=== PATIENT | male | born 1995 | race African-American/Black ===

== ENCOUNTER 2017-09-01 21:26 | Emergency (ER) | payer SELFPAY ==
[2017-09-01 21:28] VITALS: BP 140/83; PULSE 77; RESP 16; TEMP 97.7; O2SAT 99
[2017-09-01] MEDS ORDERED: SODIUM CHLORIDE 0.9% FLUSH 10 ML FLUSH IVF PRN ×2 (21:45→22:45)
[2017-09-01 22:21] LABS: BLOOD, URINE TRACE (NEG); COMMENT (UR) CULTURE INDICATED; CULTURE IF INDICATED CULTURE INDICATED; GLUCOSE,URINE NEG (NEG); KETONE, URINE NEG (NEG); MUCUS URINE MANY /lpf (OCC); NITRITE,URINE NEG (NEG); SQUAMOUS EPITHELIAL CELL URINE <1 /hpf (0-5); URINE COLOR YELLOW (YELLW/STRAW)
[2017-09-01] MEDS ORDERED: LIDOCAINE HCL 1% PF 30 ML VIAL XX ONE (22:45)
[2017-09-01] MEDS ORDERED: AZITHROMYCIN PWD FOR SUSP 1 GM PACKET PO ONE (22:45)
--- NOTE | 2017-09-01 22:47 | PD ---
HPI Chief Complaint: Complaint Time Seen by Provider: 22:18 Travel History International Travel<30 days: No Contact w/Intl Traveler<30days: No Traveled to known affect area: No History of Present Illness HPI Patient comes in to the emergency department complaining of dysuria and penile discharge 2 days. Patient denies anything making this worse. States drinking water improved symptoms. Denies anything like this in the past. Denies any testicular pain, abdominal pain, back pain, or fevers. Denies any radiation of the pain. PFSH Past Medical History Medical History: Denies Significant Hx Diminished Hearing: No Immunizations Current: Yes Tetanus Vaccination: Unknown Influenza Vaccination: No Social History Alcohol Use: No Tobacco Use: No Substance Use: Yes (marijuana) Allergies-Medications (Allergen,Severity, Reaction): Coded Allergies: No Known Allergies (Verified Adverse Reaction, Unknown, 09/01/17) Reported Meds & Prescriptions Reported Meds & Active Scripts Active No Active Prescriptions or Reported Medications Review of Systems Except as stated in HPI: all other systems reviewed are Neg Physical Exam Narrative GENERAL: Well-developed, well nourished, in no acute distress, and non-ill appearing. SKIN: Focused skin assessment warm and dry. HEAD: Atraumatic. Normocephalic. EYES: Pupils equal and round. EOMI. No scleral icterus. No injection or drainage. ENT: No nasal bleeding or discharge. Mucous membranes pink and moist. NECK: Trachea midline. Supple. No nuclear rigidity. RESPIRATORY: No accessory muscle use. No respiratory distress. GASTROINTESTINAL: Abdomen soft, non-tender, nondistended, and no guarding. Hepatic and splenic margins not palpable. Normal bowel sounds 4. No pulsatile mass. No CVA tenderness. MUSCULOSKELETAL: No obvious deformities. No clubbing. No cyanosis. No edema. Full range of motion. NEUROLOGICAL: Awake and alert. No obvious cranial nerve deficits. Motor grossly within normal limits. Normal speech. PSYCHIATRIC: Appropriate mood and affect; insight and judgment normal. Data Data Last Documented VS Vital Signs Date Time Temp Pulse Resp B/P (MAP) Pulse Ox O2 Delivery O2 Flow Rate FiO2 09/01/17 23:53 09/01/17 21:28 97.7 77 16 99 Room Air Orders Orders Urinalysis - C+S If Indicated (09/01/17 21:45) Gc And Chlamydia Pcr (09/01/17 21:45) Sodium Chloride 0.9% Flush (Ns Flush) (09/01/17 21:45) Urine Culture (09/01/17 21:50) Azithromycin Powd Pack (Zithromax Powd P (09/01/17 22:45) Sodium Chloride 0.9% Flush (Ns Flush) (09/01/17 22:45) Ceftriaxone Inj (Rocephin Inj) (09/01/17 22:45) Lidocaine Pf 1% Inj (Xylocaine-Mpf 1% In (09/01/17 22:45) Ed Discharge Order (09/01/17 23:14) Labs Laboratory Tests Test 09/01/17 21:50 Urine Color YELLOW Urine Turbidity HAZY Urine pH 6.0 Urine Specific [place] 1.034 Urine Protein 30 mg/dL Urine Glucose (UA) NEG mg/dL Urine Ketones NEG mg/dL Urine Occult Blood TRACE Urine Nitrite NEG Urine Bilirubin NEG Urine Urobilinogen 2.0 MG/DL Urine Leukocyte Esterase LARGE Urine RBC 12 /hpf Urine WBC 73 /hpf Urine Squamous Epithelial Cells <1 /hpf Urine Amorphous Sediment RARE Urine Mucus MANY /lpf Microscopic Urinalysis Comment CULTURE INDICATED MDM Medical Decision Making Medical Screen Exam Complete: Yes Emergency Medical Condition: Yes Differential Diagnosis UTI, STD, pyelonephritis, renal calculi, other Narrative Course Patient in no obvious distress upon re-evaluation. All pertinent laboratory result(s) discussed with patient with the exception of gonorrhea and chlamydia are currently pending. Patient was asked if they wanted to speak to my attending , which the patient did not wish to do at this time. Any questions/concerns in reference to patient diagnosis/condition discussed and clarified prior to patient's discharge. Reinforced sheer importance of close follow up with patient 's primary physician or primary care clinic and/or health Department. Instructed patient to return to ED immediately, if symptoms return/worsen. Patient showed understanding of above instructions. Further instructions and recommendations were detailed in discharge paperwork. Patient ambulated without difficulty out of ED at discharge. Diagnosis Primary Impression: UTI (urinary tract infection) Qualified Codes: N39.0 - Urinary tract infection, site not specified; R31.9 - Hematuria, unspecified Additional Impression: Possible exposure to STD Referrals: [facility] Dept. Patient Instructions: General Instructions, Sexually Transmitted Diseases (DC) , Urinary Tract Infection in Men (ED) Additional Instructions: Follow-up with your primary care physician and/or health Department for additional STD testing. Notify all sexual partners have them tested and treated. Do not have intercourse until all sexual partners tested and treated. Practice safe sex to prevent further STDs and/or unwanted pregnancies. If you would like a copy of your gonorrhea and chlamydia results bring a photo ID to medical records in 24-48 hours to get a copy. Return to the emergency department if symptoms get worse. Scripts No Active Prescriptions or Reported Meds Disposition: 01 DISCHARGE HOME Condition: Farrukh Armando Sep 01, 2017 22:47
[2017-09-02 11:41] LABS: CHLAMYDIA PCR NOT DETECTED (NOT DETECT)
[2017-09-02 11:42] LABS: NEISSERIA PCR DETECTED (NOT DETECT)
== END 2017-09-01 23:53 | disposition home or self-care (01) ==
LOC: NEPK 21:26
DX: N39.0 Urinary tract infection, site not specified (principal); R36.9 Urethral discharge, unspecified
CPT/HCPCS: 81001; 87086; 96372; 99284; J0696; 87491; 87591

== ENCOUNTER 2018-11-06 14:37 | Inpatient (IN) ==
--- NOTE | 2018-11-06 14:54 | ED ---
HPI General Chief Complaint: Stroke Alert Stated Complaint: lt arm/lt leg weak/tingling/numbness/migraines Time Seen by Provider: 11/06/18 14:41 Source: patient Mode of arrival: ambulatory Limitations: no limitations History of Present Illness HPI Narrative: The patient is a 23-year-old -[place] male who presents to the emergency department via private vehicle for right sided numbness and weakness of the right leg. The patient states he developed headaches last month that would start in the posterior aspect of the head and radiate to the frontal region. The patient was seen in the emergency department at that time and had a negative CT the brain, was administered a migraine cocktail, and his symptoms improved. The patient had no weakness or numbness at that time. The patient states of the last week he has had increasing headaches which are intermittent, but denies any headache upon arrival. The patient states over the last 2 days he has had intermittent numbness to the right arm and the right leg, states that resolved last night. However, the patient states he went to the beach earlier today, did smoke some marijuana, and when he was leaving the beach he noticed that his right side of the body, arm and leg felt numb and he apparently was dragging the right leg according to a friend. The patient denies any history of complicated migraines or similar symptoms in the past related to headaches. The patient denies any visual deficits, visual acuity changes, difficulty with speech, or dizziness. The patient denies any history of coagulopathy or sickle cell disease. The patient denies any history of hypertension, hyperlipidemia, diabetes, or previous known clotting disorders including PE and DVT. The patient is not on any medications. Onset (ago): minute(s) Time: 14:30 Timing confirmed by: other Location: Reports right arm and right leg History of same: No Severity: moderate Quality: Reports weak and numb Relieving factors: none Exacerbating factors: none Context: Reports sudden onset On Anticoagulants: No Associated symptoms: Reports headaches Treatments Prior to Arrival: Reports none Related Data Home Medications Medication Instructions Recorded Confirmed No Known Home Medications 11/06/18 11/06/18 Allergies Allergy/AdvReac Type Severity Reaction Status Date / Time shellfish derived Allergy Vomiting Verified 11/06/18 14:49 Review of Systems ROS: all other systems reviewed are negative [facility] Medical History Medical History Patient denies medical problems (Acute) Surgical History Surgical History No history of previous surgery (Acute) Social History Social History Substance History: Active Abuse Second Hand Smoke Exposure: No Smoking Status: Never smoker How Often Do You Have a Drink Containing Alcohol: Never Recent Travel in [facility] within the Last 8 Weeks: No Recent Out of Country Travel within the Last 8 Weeks: No Exam Narrative Exam Narrative: GENERAL: Awake, alert, 3-year-old male who appears his stated age and is in no acute respiratory distress. SKIN: Focused skin assessment warm/dry. HEAD: Atraumatic. Normocephalic. EYES: Pupils equal and round. Pupils are 3 mm bilateral and reactive. EOMs are intact. Patient is able to see fingers at a distance of 2 feet without difficulty. Visual rayo are symmetric. ENT: No nasal bleeding or discharge. Mucous membranes pink and moist. NECK: Trachea midline. No JVD. CARDIOVASCULAR: Regular, tachycardic with a heart rate of 110. RESPIRATORY: No accessory muscle use. Clear to auscultation. Breath sounds equal bilaterally. GASTROINTESTINAL: Abdomen soft, non-tender, nondistended. MUSCULOSKELETAL: No obvious deformities. No clubbing. No cyanosis. No edema. NEUROLOGICAL: Awake and alert. No obvious cranial nerve deficits. Motor grossly within normal limits. Normal speech. Smile is symmetric. No dysarthria noted. EOMs are intact. Visual rayo are symmetric. Patient is able to see fingers at a distance of 2 feet without difficulty. No drift of the upper extremities. No drift of the lower extremities, however, patient does elevate the right leg at a slower rate of speed compared to the left. Strength with flexion of the right hip and extension of the right knee is slightly diminished compared to the left. Heel to marinelli is normal. Finger to nose is normal. Patient is oriented x3. Sensation was symmetric on the face. Sensation was slightly diminished to soft touch on the right arm and right leg compared to the left. PSYCHIATRIC: Appropriate mood and affect; insight and judgment normal. Course Initial Documented Vital Signs Temperature 98.9 F 11/06/18 14:49 Pulse Rate 112 H 11/06/18 14:49 Respiratory Rate 16 11/06/18 14:49 Blood Pressure 136/71 11/06/18 14:49 Pulse Oximetry 98 11/06/18 14:49 Last Documented Vital Signs Temperature 98.9 F 11/06/18 14:49 Pulse Rate 93 H 11/06/18 16:03 Respiratory Rate 16 11/06/18 16:03 Blood Pressure 104/59 L 11/06/18 16:03 Pulse Oximetry 100 11/06/18 16:03 NIH Stroke Scale NIHSS Time Completed NIHSS Time Completed: 14:50 NIH Stroke Scale Level of Consciousness: 0-Alert Orientation Questions: 0-Answers both correct Responds to Commands: 0-Both tasks correct Gaze Eye Movement: 0-Horizontal movement WNL Visual Rayo: 0-No visual field defect Facial Movement: 0-Normal Motor Functions Arm LEFT: 0-No drift Motor Functions Arm RIGHT: 0-No drift Motor Functions Leg LEFT: 0-No drift Motor Functions Leg RIGHT: 0-No drift Limb Ataxia: 0-No ataxia Sensory Loss: 1-Mild sensory loss Best Language: 0-Normal Articulation: 0-Normal Extinction or Inattention Sensory: 0-Absent Total: 1 Medical Decision Making MDM Narrative Medical decision making narrative: IV was established, labs are drawn and sent, and the patient was placed on cardiac telemetry monitoring and continuous pulse oximetry monitoring. A stroke alert was called, NIHSS was performed, was 1. I discussed the patient immediately with the on-call neurologist, Dr. Pierre. The patient was evaluated by neurology with telemedicine at bedside. Stat CT of the brain and CTA of the head and neck were ordered. CT of the brain reveals an abnormality in the right frontal area, I discussed the CT findings with Dr. Hernandez, after discussion it was agreed the patient would have an MRI with and without contrast. I discussed the findings with Dr. Pierre who recommends CRP, sed rate, TSH, and drug screen. CTA of the head and neck are unremarkable. I had another discussion with the patient regarding abnormal CT of the brain, he denies any recent international travel, he states he was born [place] the [place], and he denies any fever with his intermittent headaches and symptoms. MRI of the brain is positive for possible infarct, possibly could be embolic in nature versus cerebritis. The patient's CRP and sed rate are within normal limits, the patient is afebrile. The patient did want to leave the emergency department, had a long discussion with the patient regarding the possibility of embolic stroke in future neurologic deficits. The patient may need an echocardiogram and/or RENETTA as well as possible coagulopathy workup. I discussed the patient with Dr. Gorman who agrees with admission. Medical Screen Exam Complete: Yes Emergency Medical Condition: Yes Differential Diagnosis Differential Diagnosis: Differential diagnosis includes complicated migraine, CVA, TIA, intracranial hemorrhage, intracranial tumor, coagulopathy, clotting disorder, transient neurologic disorder, drug effect. Lab Data Result diagrams: 11/06/18 14:50 11/06/18 14:50 Lab Results 11/06/18 11/06/18 11/06/18 Range/Units 14:43 14:50 14:50 CBC w Diff Auto diff final WBC 8.6 (4.0-11.0) th/mm3 RBC 5.35 (4.50-5.90) mil/mm3 Hgb 15.2 (13.0-17.0) gm/dL Hct 46.5 (39.0-51.0) % MCV 86.9 (80.0-100.0) fL MCH 28.4 (27.0-34.0) pg MCHC 32.7 (32.0-36.0) % RDW 11.9 (11.6-17.2) % Plt Count 255 D (150-450) th/mm3 MPV 9.1 (7.0-11.0) fL Neut % (Auto) 58.2 (16.0-70.0) % Lymph % (Auto) 28.9 (9.0-44.0) % [place] % (Auto) 8.6 H (0.0-8.0) % Eos % (Auto) 0.3 (0.0-4.0) % Baso % (Auto) 4.0 H (0.0-2.0) % Neut # (Auto) 5.1 (1.8-7.7) th/mm3 Lymph # (Auto) 2.5 (1.0-4.8) th/mm3 [place] # (Auto) 0.7 (0.0-0.9) th/mm3 Eos # (Auto) 0.0 (0.0-0.4) th/mm3 Baso # (Auto) 0.3 H (0.0-0.2) th/mm3 WBC Differential . Differential Comment . ESR (0-15) mm/hr PT 11.6 (9.8-11.6) sec INR 1.1 Ratio APTT 33.1 H (23.4-31.7) sec Fibrinogen 389 H (227-377) mg/dL Sodium (136-145) meq/L Potassium (3.5-5.1) meq/L Chloride (98-107) meq/L Carbon Dioxide (21.0-32.0) meq/L Anion Gap (5-15) meq/L BUN (7-18) mg/dL Creatinine (0.60-1.30) mg/dL Estimated GFR (>89) mL/min POC Glucose 177 H (68-110) mg/dl Random Glucose (74-106) mg/dL Calcium (8.5-10.1) mg/dL Total Creatine Kinase (39-308) U/L CK-MB (CK-2) (0.5-3.6) ng/mL CK-MB (CK-2) % (0.0-4.0) % Troponin I (0.02-0.05) ng/mL C-Reactive Protein (0.00-0.30) mg/dL TSH (0.358-3.740) uIU/mL Blood Type Blood Type Recheck Antibody Screen 11/06/18 11/06/18 11/06/18 Range/Units 14:50 14:50 14:50 CBC w Diff WBC (4.0-11.0) th/mm3 RBC (4.50-5.90) mil/mm3 Hgb (13.0-17.0) gm/dL Hct (39.0-51.0) % MCV (80.0-100.0) fL MCH (27.0-34.0) pg MCHC (32.0-36.0) % RDW (11.6-17.2) % Plt Count (150-450) th/mm3 MPV (7.0-11.0) fL Neut % (Auto) (16.0-70.0) % Lymph % (Auto) (9.0-44.0) % Chester % (Auto) (0.0-8.0) % Eos % (Auto) (0.0-4.0) % Baso % (Auto) (0.0-2.0) % Neut # (Auto) (1.8-7.7) th/mm3 Lymph # (Auto) (1.0-4.8) th/mm3 Chester # (Auto) (0.0-0.9) th/mm3 Eos # (Auto) (0.0-0.4) th/mm3 Baso # (Auto) (0.0-0.2) th/mm3 WBC Differential Differential Comment ESR (0-15) mm/hr PT (9.8-11.6) sec INR Ratio APTT (23.4-31.7) sec Fibrinogen (227-377) mg/dL Sodium 135 L (136-145) meq/L Potassium 3.4 L (3.5-5.1) meq/L Chloride 99 (98-107) meq/L Carbon Dioxide 30.5 (21.0-32.0) meq/L Anion Gap 6 (5-15) meq/L BUN 15 (7-18) mg/dL Creatinine 1.10 (0.60-1.30) mg/dL Estimated GFR Greater than 89 (>89) mL/min POC Glucose (68-110) mg/dl Random Glucose 117 H (74-106) mg/dL Calcium 9.3 (8.5-10.1) mg/dL Total Creatine Kinase 716 H (39-308) U/L CK-MB (CK-2) 8.7 H (0.5-3.6) ng/mL CK-MB (CK-2) % 1.2 (0.0-4.0) % Troponin I Less than 0.02 L (0.02-0.05) ng/mL C-Reactive Protein Less than 0.29 (0.00-0.30) mg/dL TSH 0.841 (0.358-3.740) uIU/mL Blood Type O Positive Blood Type Recheck Required Antibody Screen Negative 11/06/18 Range/Units 14:50 CBC w Diff WBC (4.0-11.0) th/mm3 RBC (4.50-5.90) mil/mm3 Hgb (13.0-17.0) gm/dL Hct (39.0-51.0) % MCV (80.0-100.0) fL MCH (27.0-34.0) pg MCHC (32.0-36.0) % RDW (11.6-17.2) % Plt Count (150-450) th/mm3 MPV (7.0-11.0) fL Neut % (Auto) (16.0-70.0) % Lymph % (Auto) (9.0-44.0) % Chester % (Auto) (0.0-8.0) % Eos % (Auto) (0.0-4.0) % Baso % (Auto) (0.0-2.0) % Neut # (Auto) (1.8-7.7) th/mm3 Lymph # (Auto) (1.0-4.8) th/mm3 [place] # (Auto) (0.0-0.9) th/mm3 Eos # (Auto) (0.0-0.4) th/mm3 Baso # (Auto) (0.0-0.2) th/mm3 WBC Differential Differential Comment ESR 5 (0-15) mm/hr PT (9.8-11.6) sec INR Ratio APTT (23.4-31.7) sec Fibrinogen (227-377) mg/dL Sodium (136-145) meq/L Potassium (3.5-5.1) meq/L Chloride (98-107) meq/L Carbon Dioxide (21.0-32.0) meq/L Anion Gap (5-15) meq/L BUN (7-18) mg/dL Creatinine (0.60-1.30) mg/dL Estimated GFR (>89) mL/min POC Glucose (68-110) mg/dl Random Glucose (74-106) mg/dL Calcium (8.5-10.1) mg/dL Total Creatine Kinase (39-308) U/L CK-MB (CK-2) (0.5-3.6) ng/mL CK-MB (CK-2) % (0.0-4.0) % Troponin I (0.02-0.05) ng/mL C-Reactive Protein (0.00-0.30) mg/dL TSH (0.358-3.740) uIU/mL Blood Type Blood Type Recheck Antibody Screen Imaging Data Radiologist's impression: Chest X-Ray 11/06/18 14:51 CONCLUSION: No acute cardiopulmonary disease. Head CT 11/06/18 14:51 CONCLUSION: 1. Abnormal area of diminished attenuation right frontal lobe not present previously could potentially be an area of infarction, however underlying cerebritis or even abscess formation difficult to exclude. Report was called by [myself to Dr. James at 3:41 PM. ] Head CTA 11/06/18 14:56 CONCLUSION: 1. Unremarkable study. Neck CTA 11/06/18 14:56 CONCLUSION: 1. Unremarkable study. Head MRI 11/06/18 15:40 CONCLUSION: 1. Multiple areas of restriction diffusion capacity bilaterally one of which corresponds to an area of lucency on the patient's brain CT characteristic of acute infarction and possibly embolic episode should be entertained. Unusual case of cerebritis is difficult to exclude. ECG Data EKG Prior to Arrival: No Attestation: I personally reviewed and interpreted this ECG as follows: Interpretation: EKG reveals normal sinus rhythm with a rate of 95. No ischemic changes or ectopy noted. Discharge Plan Discharge Disposition Patient Disposition: ED Admit(ED Internal Use Only) Discharge Condition Condition: Stable Discharge Order Discharge Orders: ED Use Only Admit Order (Routine); Ordered 11/06/18 Ordered By: Jerome James Discharge Details Diagnosis: Acute CVA (cerebrovascular accident) Physicians Team ED Provider: Jerome James Primary Care Provider: Primary Care Physici,No Other Providers: Juan Pierre Rxs /Orders / Referrals /Forms Prescriptions: No Action No Known Home Medications RF: 0 Discharge Interventions Interventions: Vital Signs Last Done: 11/06/18 16:03 Status ED Status: Admitted Patient
[2018-11-06] MEDS ORDERED: Sod Chloride 0.9% Inj 1,000 ML IV.CONT SCH (15:00)
[2018-11-06 15:03] LABS: Baso # (Auto) 0.3 th/mm3 (0.0-0.2); Eos % (Auto) 0.3 % (0.0-4.0); Hematocrit 46.5 % (39.0-51.0); Hemoglobin 15.2 gm/dL (13.0-17.0); Lymph # (Auto) 2.5 th/mm3 (1.0-4.8); Lymph % (Auto) 28.9 % (9.0-44.0); Mean Corpuscular HGB Conc 32.7 % (32.0-36.0); Mean Corpuscular Hemoglobin 28.4 pg (27.0-34.0); Mean Corpuscular Volume 86.9 fL (80.0-100.0); Mean Platelet Volume 9.1 fL (7.0-11.0); Mono # (Auto) 0.7 th/mm3 (0.0-0.9); Mono % (Auto) 8.6 % (0.0-8.0); Neut # (Auto) 5.1 th/mm3 (1.8-7.7); Neut % (Auto) 58.2 % (16.0-70.0); Platelet Count 255 th/mm3 (150-450); Red Blood Count 5.35 mil/mm3 (4.50-5.90); Red Cell Distribution Width 11.9 % (11.6-17.2); White Blood Count 8.6 th/mm3 (4.0-11.0)
[2018-11-06 15:13] LABS: Chloride 99 meq/L (98-107); Potassium 3.4 meq/L (3.5-5.1); Sodium 135 meq/L (136-145)
[2018-11-06 15:16] LABS: Activated Partial Thrombo Time 33.1 sec (23.4-31.7); Anion Gap 6 meq/L (5-15); Blood Urea Nitrogen 15 mg/dL (7-18); Calcium 9.3 mg/dL (8.5-10.1); Carbon Dioxide 30.5 meq/L (21.0-32.0); Glucose,Random 117 mg/dL (74-106); INR 1.1 Ratio; Prothrombin Time 11.6 sec (9.8-11.6)
[2018-11-06 15:19] LABS: Glomerular Filtration Rate Greater Than 89 mL/min (>89)
[2018-11-06 15:23] LABS: Creatine Kinase 716 U/L (39-308)
--- NOTE | 2018-11-06 15:27 | MB ---
cc: Juan Pierre MD DATE: 11/06/2018 This was a stroke alert called. The patient is a 23-year-old right-handed man without significant past medical history. He takes occasional Advil. He does not take aspirin or any blood thinners. For the last 3 weeks, he has had some headaches on and off, and then yesterday around midnight, he felt like he had some numbness on his right side and a mild headache, and this seemed to resolve, and then this morning at about 2-1/2 hours ago, he felt like he was not walking as well. His right leg felt a little bit numb and with a change in his gait, and then about an hour later, he felt numb on the right arm and the leg. Nothing above the neck except for some blurry vision last evening. He has been seen several times recently in the ER at [place] for headaches, had a CT done. He was thought to maybe have migraines. REVIEW OF SYSTEMS: He denies any history of hypertension, diabetes, hypercholesterolemia, NV, CABG, atrial fibrillation, Coumadin, chest pain, palpitations, renal, hepatic, pulmonary disease, thyroid disease, lupus, ulcer, cancer, seizure, or stroke. SOCIAL HISTORY: Nonsmoker or drinker. Smokes marijuana, not cigarettes. No cocaine or drugs. FAMILY HISTORY: Negative for cancer, seizure, stroke. Negative for miscarriages or blood clots or sickle cell. PHYSICAL EXAMINATION: VITAL SIGNS: He is sinus rhythm, 130/70. NEUROLOGIC: Visual chavez are full. Extraocular movements intact without nystagmus. Face is symmetric with normal sensation. Tongue was midline. He has no drift. He had normal strength in upper and lower extremities bilaterally including bilateral triceps, finger extensors, iliopsoas, tibialis anterior. Toes downgoing bilaterally. Pinprick was intact, bilateral face, arm, and legs. He is not ataxic on [id number]. Speech is fluent. He is not aphasic. He has normal naming and repetition. LABORATORY DATA: Labs are pending, but his glucose was 177. That is all that is back at this time. IMPRESSION: Possible ischemic event, but his NIH stroke scale now is 0. He was not given TPA as a result. We will do a CT of the brain, CTA of the neck and agdaagux of [place], and neurology consult should be placed. MD LUIS ARMANDO Green/cl , 03:14 PM , 03:21 PM
[2018-11-06 15:35] LABS: CKMB Percent 1.2 % (0.0-4.0); Creatine Kinase MB 8.7 ng/mL (0.5-3.6)
--- NOTE | 2018-11-06 15:43 | CT ---
EXAM DATE: 11/06/2018 3:21 PM EST AGE/SEX: 23 years / Male INDICATIONS: Stroke alert. Right upper and lower extremity numbness. CLINICAL DATA: This is the patient's initial encounter. Patient reports that signs and symptoms have been present for 2 days and indicates a pain score of 0/10. MEDICAL/SURGICAL HISTORY: None. None. RADIATION DOSE: 51.10 CTDI (mGy) COMPARISON: [facility] [place], CT HEAD W/O CONTRAST, 10/24/2018. . TECHNIQUE: CT of the head without contrast. Using automated exposure control and adjustment of the mA and/or kV according to patient size, radiation dose was kept as low as reasonably achievable to ob tain optimal diagnostic quality images. DICOM format image data is available electronically for revi ew and comparison. FINDINGS: There has been a change since the prior head CT from 10/2018. There is an area of approximate 1.8 cm diminished attenuation right frontal lobe not present previously. This involves the traylor matter and w jacqui matter tracks. In the center of it is a questionable hyperdense area could be spared portion of the brain versus possibly underlying mass. There is no hemorrhage or mass effect. No extra-axial flui d collections are seen. CONCLUSION: 1. Abnormal area of diminished attenuation right frontal lobe not present previously could potential ly be an area of infarction, however underlying cerebritis or even abscess formation difficult to exc lude. Report was called by [myself to Dr. James at 3:41 PM. ] Electronically signed by: Yani Hernandez MD Board Certified Radiologist 11/06/2018 3:41 PM EST
--- NOTE | 2018-11-06 15:43 | XR ---
EXAM DATE: 11/06/2018 3:41 PM EST AGE/SEX: 23 years / Male INDICATIONS: Stoke alert CLINICAL DATA: This is the patient's initial encounter. Patient reports that signs and symptoms have been present for 1 day and indicates a pain score of 0/10. MEDICAL/SURGICAL HISTORY: None. None. COMPARISON: . FINDINGS: The lungs are clear without infiltrate, nodule, or mass. There is no appreciable pleural effusion for technique. Heart and mediastinum are unremarkable. CONCLUSION: No acute cardiopulmonary disease. Electronically signed by: Yani Hernandez MD Board Certified Radiologist 11/06/2018 3:42 PM EST
--- NOTE | 2018-11-06 15:57 | CT ---
EXAM DATE: 11/06/2018 3:39 PM EST AGE/SEX: 23 years / Male INDICATIONS: Stroke alert. Right upper and lower extremity numbness. CLINICAL DATA: This is the patient's initial encounter. Patient reports that signs and symptoms have been present for 2 days and indicates a pain score of 0/10. MEDICAL/SURGICAL HISTORY: None. None. RADIATION DOSE: 42.10 CTDI (mGy) ; Combined studies COMPARISON: No prior exams available for comparison. TECHNIQUE: Volumetric scanning was performed using a multi-row detector CT scanner during bolus infu rashad of 50 ml Visipaque 320 (iodixanol) nonionic water-soluble contrast as a cumulative dose for mul tiple exams. The data was post processed with a variety of visualization algorithms including full volume maximum intensity projection, multi-planar sliding thin slab reformation, curved planar reform ation, and surface rendering techniques. Using automated exposure control and adjustment of the mA a nd/or kV according to patient size, radiation dose was kept as low as reasonably achievable to obtain optimal diagnostic quality images. DICOM format image data is available electronically for review a nd comparison. FINDINGS: There is excellent visualization of the major intracranial arteries out to the second-order branch ve ssels. There is no evidence for aneurysm, vessel truncation or stenosis, and no evidence for vascula r malformation. CONCLUSION: 1. Unremarkable study. Electronically signed by: Yani Hernandez MD Board Certified Radiologist 11/06/2018 3:56 PM EST
--- NOTE | 2018-11-06 15:58 | CT ---
EXAM DATE: 11/06/2018 3:55 PM EST AGE/SEX: 23 years / Male INDICATIONS: Stroke alert. Right upper and lower extremity numbness. CLINICAL DATA: This is the patient's initial encounter. Patient reports that signs and symptoms have been present for 2 days and indicates a pain score of 0/10. MEDICAL/SURGICAL HISTORY: None. None. RADIATION DOSE: 42.13 CTDI (mGy) ; Combined studies COMPARISON: No prior exams available for comparison. TECHNIQUE: Volumetric scanning was performed using a multirow detector CT scanner during bolus infus ion of 50 ml Visipaque 320 (iodixanol) nonionic water-soluble contrast as a cumulative dose for mult iple exams. The data was postprocessed with a variety of visualization algorithms including full-vo lume maximum intensity projection, multiplanar sliding thin-slab reformation, curved-planar reformati on, and surface-rendering techniques. Using automated exposure control and adjustment of the mA and/ or kV according to patient size, radiation dose was kept as low as reasonably achievable to obtain op timal diagnostic quality images. DICOM format image data is available electronically for review and comparison. Percent stenosis is calculated using the diameter of the stenotic region over the diameter of the nor mal distal internal carotid artery. FINDINGS: The takeoff of the major vessels from the arch appear intact. The vertebral basilar arteries appear i ntact bilaterally. The internal carotid arteries and common carotid arteries appear completely normal . CONCLUSION: 1. Unremarkable study. Electronically signed by: Yani Hernandez MD Board Certified Radiologist 11/06/2018 3:57 PM EST
[2018-11-06 16:09] LABS: Thyroid Stimulating Hormone 0.841 uIU/mL (0.358-3.740)
[2018-11-06] MEDS ORDERED: Gadobutrol PF 7.5 MMOL/7.5 ML Vial (for RAD) IV.SIG ONE (16:47)
--- NOTE | 2018-11-06 17:12 | MR ---
EXAM DATE: 11/06/2018 5:04 PM EST AGE/SEX: 23 years / Male INDICATIONS: Stroke. Abnormal CT, patient was a stroke alert with right sided weakness and has he adaches. CLINICAL DATA: This is the patient's initial encounter. Patient reports that signs and symptoms have been present for 1 day and indicates a pain score of 1/10. MEDICAL/SURGICAL HISTORY: None. None. COMPARISON: [facility], CT HEAD W/O CONTRAST, 11/06/2018. . TECHNIQUE: Multiplanar, multisequence examination of the brain was performed without and with 4.5 ml Gadavist (gadobutrol) contrast as a single exam dose. FINDINGS: There is abnormal diffusion involving the right frontal lobe corresponding to the area of lucency on the patient's CT examination nath-white junction with separate area involving the left high convexity posterior parietal lobule in addition to right frontoparietal junction, left posterior temporal occi pital junction. There is a questionable one involving the right basal ganglia. No definite intracrani al hemorrhage is identified. There is no abnormal enhancement within these areas. CONCLUSION: 1. Multiple areas of restriction diffusion capacity bilaterally one of which corresponds to an area of lucency on the patient's brain CT characteristic of acute infarction and possibly embolic episode should be entertained. Unusual case of cerebritis is difficult to exclude. Electronically signed by: Yani Hernandez MD Board Certified Radiologist 11/06/2018 5:10 PM EST
--- NOTE | 2018-11-06 21:12 | MR ---
EXAM DATE: 11/06/2018 9:01 PM EST AGE/SEX: 23 years / Male INDICATIONS: Stenosis. CLINICAL DATA: This is the patient's initial encounter. Patient reports that signs and symptoms have been present for 1 day and indicates a pain score of 0/10. MEDICAL/SURGICAL HISTORY: None. None. COMPARISON: [facility], MR HEAD W & W/O CONTRAST, 11/06/2018. . TECHNIQUE: MR cerebral venography is performed without contrast. Source images, 3D volume MIP, and s liding thin slab MIP reconstructions were reviewed. FINDINGS: The major dural venous sinuses and intracerebral veins are identified. No abnormal cutoff's or fillin g defects. CONCLUSION: Brain MRV within normal limits. Electronically signed by: Alok Granados MD Board Certified Radiologist 11/06/2018 9:11 PM EST
--- NOTE | 2018-11-06 22:09 | P.HPIM ---
History of Present Illness Service: [facility] Primary Care Physician: No Primary Care Physician Chief Complaint: Right-sided numbness and headache History of Present Illness: 23-year-old male with no medical history presented to the ED with complaints of a headache that has lasted 3 weeks and right-sided numbness for the last 2 days. Patient states he has had on and off 2/10 throbbing headaches in the frontal region that radiate to the occipital region, for 3 weeks, worse with light, with associated nausea and not relieved by Advil. He states that for the last 2 days he has been having numbness on his right side. He denies any associated shortness of breath, chest pain, fever or chills. He denies any family history of any clotting disorders. Upon examination patient only complains of a mild headache with some slight numbness to the right side, no weakness is noted. Inpatient Certification Inpatient Certification: I certify that the inpatient services were ordered in accordance with Medicare regulations governing the order. This includes certification that hospital inpatient services are reasonable and necessary and in the case of services not specified as inpatient-only under 42 CFR 419.22(n), that they are appropriately provided as inpatient services in accordance to with the 2-midnight benchmark under 43 CFR 412.3(e) Estimated Total Length of Stay (Days): 2 Plans for Post Hospital Care: Home Review of Systems Review of Systems: all other systems reviewed are negative ON LICENSE OF [facility] Medical History Medical History Patient denies medical problems (Acute) Surgical History Surgical History No history of previous surgery (Acute) Family History Family History Other No pertinent family history Social History Social History Substance History: No History of Abuse Second Hand Smoke Exposure: No Smoking Status: Current every day smoker Tobacco Type: Cigarettes How Often Do You Have a Drink Containing Alcohol: Never Recent Travel in [facility] within the Last 8 Weeks: No Recent Out of Country Travel within the Last 8 Weeks: No Immunization History Tetanus Immunization: Unsure Hx Influenza Vaccine This Season: No Medications and Allergies Allergies Allergy/AdvReac Type Severity Reaction Status Date / Time shellfish derived Allergy Vomiting Verified 11/06/18 14:49 Home Medications Medication Instructions Recorded Confirmed Type No Known Home Medications 11/06/18 11/06/18 History Active Medications: Active Medications Aspirin (Ecotrin) 81 mg PO DAILY SATINDER Sodium Chloride (Ns Inj) 1,000 mls @ 100 mls/hr IV.CONT .Q10H SATINDER Physical Exam Vital signs: Last Vital Signs Temp 98.2 F 11/06/18 21:45 Pulse 52 L 11/06/18 21:45 Resp 19 11/06/18 21:45 BP 109/56 L 11/06/18 21:45 Pulse Ox 97 11/06/18 21:45 Intake & Output 11/04/18 11/05/18 11/06/18 11/07/18 06:59 06:59 06:59 06:59 Intake Total 140 / 140 Balance 140 / 140 Weight 47.1 kg Narrative: GENERAL: Thin patient in no acute distress, complaining of a headache SKIN: Warm and dry. HEAD: Atraumatic. Normocephalic. EYES: Pupils equal and round. No scleral icterus. No injection or drainage. ENT: No nasal bleeding or discharge. Mucous membranes pink and moist. NECK: Trachea midline. No JVD. CARDIOVASCULAR: Regular rate and rhythm. RESPIRATORY: No accessory muscle use. Clear to auscultation. Breath sounds equal bilaterally. GASTROINTESTINAL: Abdomen soft, non-tender, nondistended. Hepatic and splenic margins not palpable. MUSCULOSKELETAL: Extremities without clubbing, cyanosis, or edema. No obvious deformities. NEUROLOGICAL: Awake and alert. No obvious cranial nerve deficits. Motor grossly within normal limits. Five out of 5 muscle strength in the arms and legs. Normal speech. Right upper and lower extremity mild numbness PSYCHIATRIC: Appropriate mood and affect; insight and judgment normal. Results Labs CBC & Chem 7: 11/06/18 14:50 11/06/18 14:50 Imaging Impressions Chest X-Ray 11/06/18 14:51 CONCLUSION: No acute cardiopulmonary disease. Head CT 11/06/18 14:51 CONCLUSION: 1. Abnormal area of diminished attenuation right frontal lobe not present previously could potentially be an area of infarction, however underlying cerebritis or even abscess formation difficult to exclude. Report was called by [myself to Dr. James at 3:41 PM. ] Head CTA 11/06/18 14:56 CONCLUSION: 1. Unremarkable study. Neck CTA 11/06/18 14:56 CONCLUSION: 1. Unremarkable study. Head MRI 11/06/18 15:40 CONCLUSION: 1. Multiple areas of restriction diffusion capacity bilaterally one of which corresponds to an area of lucency on the patient's brain CT characteristic of acute infarction and possibly embolic episode should be entertained. Unusual case of cerebritis is difficult to exclude. Head/Brain Mag Res Venography 11/06/18 18:49 CONCLUSION: Brain MRV within normal limits. Caprini VTE Risk Assessment Caprini VTE Risk Assessment: No/Low Risk (score <= 1) Caprini Risk Assessment Model: Point Value = 1 Point Value = 2 Point Value = 3 Point Value = 5 Age 41-60 Minor surgery BMI > 25 kg/m2 Swollen legs Varicose veins or History of unexplained or recurrent spontaneous Oral contraceptives or hormone replacement Sepsis (< 1 month) Serious lung disease, including pneumonia (< 1 month) Abnormal pulmonary function Acute myocardial infarction Congestive heart failure (< 1 month) History of inflammatory bowel disease Medical patient at bed rest Age 61-74 Arthroscopic surgery Major open surgery (> 45 min) Laparoscopic surgery (> 45 min) Malignancy Confined to bed (> 72 hours) Immobilizing plaster cast Central venous access Age >= 75 History of VTE Family history of VTE Factor V Leiden Prothrombin [id number] Lupus anticoagulant Anticardiolipin antibodies Elevated serum homocysteine Heparin-induced thrombocytopenia Other congenital or acquired thrombophilia Stroke (< 1 month) Elective arthroplasty Hip, pelvis, or leg fracture Acute spinal cord injury (< 1 month) Prophylaxis Regimen: Total Risk Factor Score Risk Level Prophylaxis Regimen 0-1 Low Early ambulation 2 Moderate Order ONE of the following: *Sequential Compression Device (SCD) *Heparin 5000 units SQ BID 3-4 Higher Order ONE of the following medications: *Heparin 5000 units SQ TID *Enoxaparin/Lovenox 40 mg SQ daily (WT < 150 kg, CrCl > 30 mL/min) *Enoxaparin/Lovenox 30 mg SQ daily (WT < 150 kg, CrCl > 10-29 mL/min) *Enoxaparin/Lovenox 30 mg SQ BID (WT < 150 kg, CrCl > 30 mL/min) AND/OR *Sequential Compression Device (SCD) 5 or more Highest Order ONE of the following medications: *Heparin 5000 units SQ TID (Preferred with Epidurals) *Enoxaparin/Lovenox 40 mg SQ daily (WT < 150 kg, CrCl > 30 mL/min) *Enoxaparin/Lovenox 30 mg SQ daily (WT < 150 kg, CrCl > 10-29 mL/min) *Enoxaparin/Lovenox 30 mg SQ BID (WT < 150 kg, CrCl > 30 mL/min) AND *Sequential Compression Device (SCD) Assessment and Plan Plan 23-year-old male with no medical history presented to the ED with complaints of a headache that has lasted 3 weeks and right-sided numbness for the last 2 days. CVA, possible infection vs infarct vs clotting disorder MRI reviewed and shows multiple areas of restriction diffusion capacity bilaterally one of which corresponds to an area of lucency on the patient's brain CT characteristic of acute infarction and possibly embolic episode Neck CTA unremarkable Head CTA unremarkable Head CT reviewed and shows an abnormal area of diminished attenuation right frontal lobe not present previously could potentially be an area of infarction -Consult neurology for evaluation and further workup -Holter monitor -2D echo ordered -Neurochecks -ASA daily -EEG pending -PT eval DVT prophylaxis: SCDs Code Status: Full Discussed Condition With: Patient and RN H&P: Quality VTE Deep Vein Thrombosis/Pulmonary Embolism Present on Admission: No
[2018-11-06] MEDS: Sod Chloride 0.9% Inj 1,000 ML IV.CONT SCH (22:38)
[2018-11-06 22:43] LABS: Folate 14.8 ng/mL (3.1-17.5); Vitamin B12 233 pg/mL (193-986)
[2018-11-06] MEDS: Acetaminophen 325 MG Tablet PO PRN (23:01)
[2018-11-07] MEDS: Sod Chloride 0.9% Inj 1,000 ML IV.CONT SCH ×3 (03:00→20:03)
[2018-11-07 03:54] LABS: Bacteria,Urine Occasional /hpf; Bilirubin,Urine Negative (Negative); Clarity,Urine Clear (Clear); Color,Urine Yellow (Yellw/Straw); Glucose,Urine (UA) Negative (Negative); Leukocyte Esterase,Urine Negative (Negative); Mucus,Urine Many /lpf (Occasional); Nitrite,Urine Negative (Negative)
[2018-11-07 03:57] LABS: Urobilinogen,Urine 0.2 mg/dL (Less than 2)
[2018-11-07 03:58] LABS: Amphetamine Screen,Urine Neg (Neg); Barbiturate Screen,Urine Neg (Neg); Cannabinoid Screen,Urine Pos (Neg); Cocaine Screen,Urine Neg (Neg); Opiate Screen,Urine Neg (Neg)
[2018-11-07 04:39] LABS: Cholesterol 151 mg/dL (120-200); Triglycerides 51 mg/dL (42-150)
[2018-11-07 04:41] LABS: Chol/HDL Ratio 3.07 Ratio; HDL Cholesterol 49.1 mg/dL (40.0-60.0); LDL Cholesterol,Calculated 92 mg/dL (0-99)
[2018-11-07 05:02] LABS: Chloride 103 meq/L (98-107); Potassium 4.1 meq/L (3.5-5.1); Sodium 137 meq/L (136-145)
[2018-11-07 05:03] LABS: Anion Gap 5 meq/L (5-15); Blood Urea Nitrogen 18 mg/dL (7-18); Calcium 8.9 mg/dL (8.5-10.1); Carbon Dioxide 29.3 meq/L (21.0-32.0); Creatine Kinase 203 U/L (39-308); Glomerular Filtration Rate Greater Than 89 mL/min (>89); Glucose,Random 94 mg/dL (74-106)
--- NOTE | 2018-11-07 08:30 | P.PN ---
Subjective Interval history: 23 yers old male, right handed, no significant PMH, on no meds, , occasional marijuanan use, denies IVDU complained of 2-3 weeks headahce back of the head to front with occasional vomiting - deneis any fever associated eith right sided numbness of the right UE/Right LE 2 nights ago also complained of transient blurring of vision deis any urinary symptoms, no penile discharge Physical Exam Vital signs: Vital Signs 11/06/18 14:49 11/06/18 14:51 11/06/18 15:00 Temperature 98.9 F Pulse Rate 112 H Respiratory Rate 16 Blood Pressure 136/71 Pulse Oximetry 98 100 98 11/06/18 15:37 11/06/18 16:03 11/06/18 18:19 Temperature Pulse Rate 97 H 93 H 65 Respiratory Rate 16 16 16 Blood Pressure 109/61 104/59 L 119/64 Pulse Oximetry 98 100 99 11/06/18 18:30 11/06/18 20:50 11/06/18 21:45 Temperature 98.1 F 98.2 F Pulse Rate 67 52 L Respiratory Rate 20 19 Blood Pressure 122/73 109/56 L Pulse Oximetry 94 L 94 L 97 11/06/18 22:20 11/06/18 23:04 11/07/18 00:02 Temperature 97.5 F L Pulse Rate 52 L 48 L Respiratory Rate 17 Blood Pressure 123/65 Pulse Oximetry 97 97 11/07/18 00:14 11/07/18 03:29 11/07/18 04:00 Temperature 98 F Pulse Rate 46 L 57 L 54 L Respiratory Rate 16 Blood Pressure 109/58 L Pulse Oximetry 100 Intake & Output 11/06/18 11/07/18 11/07/18 18:59 06:59 18:59 Intake Total 140 / 140 860 / 860 Output Total 200 / 200 Balance 140 / 140 660 / 660 Weight 45 kg 41.3 kg Intake: IV 140 / 140 860 / 860 NS Inj 1,000 ML @ 70 mls/hr IV. 140 / 140 860 / 860 CONT .[id number] [facility] Rx#: [id number] Oral 0 / 0 Output: Urine 200 / 200 Other: Date of Last Bowel Movement 11/04/18 # Bowel Movements 0 Weight On Admission 47.1 kg Narrative: awake and alert, no acute distress afebrile anicteric, pupils equally reactive to light, EOM full range of motion no facial symmetry, tongue midline neck supple, no rigidity lungs- no rales regular rhythm HR- 52- sinus, abdomen soft, nontender extrmeiteis no edema grossly no sensory deficits mmotor 5/5 all extremities grossly Results - Labs CBC & Chem 7: 11/06/18 14:50 11/07/18 03:50 Laboratory Results - last 24 hr 11/06/18 11/06/18 11/06/18 14:43 14:50 14:50 CBC w Diff Auto diff final WBC 8.6 RBC 5.35 Hgb 15.2 Hct 46.5 MCV 86.9 MCH 28.4 MCHC 32.7 RDW 11.9 Plt Count 255 D MPV 9.1 Neut % (Auto) 58.2 Lymph % (Auto) 28.9 [place] % (Auto) 8.6 H Eos % (Auto) 0.3 Baso % (Auto) 4.0 H Neut # (Auto) 5.1 Lymph # (Auto) 2.5 [place] # (Auto) 0.7 Eos # (Auto) 0.0 Baso # (Auto) 0.3 H WBC Differential . Differential Comment . ESR PT 11.6 INR 1.1 APTT 33.1 H Fibrinogen 389 H Sodium Potassium Chloride Carbon Dioxide Anion Gap BUN Creatinine Estimated GFR POC Glucose 177 H Random Glucose Calcium Total Creatine Kinase CK-MB (CK-2) CK-MB (CK-2) % Troponin I C-Reactive Protein Total Protein (PEP) Triglycerides Cholesterol LDL Cholesterol, Calc HDL Cholesterol Cholesterol/HDL Ratio Vitamin B12 Folate TSH Urine Color Urine Clarity Urine pH Ur Specific [place] Urine Protein Urine Glucose (UA) Urine Ketones Urine Occult Blood Urine Nitrate Urine Bilirubin Urine Urobilinogen Ur Leukocyte Esterase Urine RBC Urine WBC Urine Bacteria Urine Mucus Micro UA Comment Ur Microscopic Review Urine Culture Comments Urine Opiates Screen Ur Barbiturates Screen Ur Amphetamines Screen U Benzodiazepines Scrn Urine Cocaine Screen U Cannabinoids Screen Blood Type Blood Type Recheck Antibody Screen 11/06/18 11/06/18 11/06/18 14:50 14:50 14:50 CBC w Diff WBC RBC Hgb Hct MCV MCH MCHC RDW Plt Count MPV Neut % (Auto) Lymph % (Auto) [place] % (Auto) Eos % (Auto) Baso % (Auto) Neut # (Auto) Lymph # (Auto) [place] # (Auto) Eos # (Auto) Baso # (Auto) WBC Differential Differential Comment ESR PT INR APTT Fibrinogen Sodium 135 L Potassium 3.4 L Chloride 99 Carbon Dioxide 30.5 Anion Gap 6 BUN 15 Creatinine 1.10 Estimated GFR Greater than 89 POC Glucose Random Glucose 117 H Calcium 9.3 Total Creatine Kinase 716 H CK-MB (CK-2) 8.7 H CK-MB (CK-2) % 1.2 Troponin I Less than 0.02 L C-Reactive Protein Less than 0.29 Total Protein (PEP) Triglycerides Cholesterol LDL Cholesterol, Calc HDL Cholesterol Cholesterol/HDL Ratio Vitamin B12 Folate TSH 0.841 Urine Color Urine Clarity Urine pH Ur Specific [place] Urine Protein Urine Glucose (UA) Urine Ketones Urine Occult Blood Urine Nitrate Urine Bilirubin Urine Urobilinogen Ur Leukocyte Esterase Urine RBC Urine WBC Urine Bacteria Urine Mucus Micro UA Comment Ur Microscopic Review Urine Culture Comments Urine Opiates Screen Ur Barbiturates Screen Ur Amphetamines Screen U Benzodiazepines Scrn Urine Cocaine Screen U Cannabinoids Screen Blood Type O Positive Blood Type Recheck Required Antibody Screen Negative 11/06/18 11/06/18 11/07/18 14:50 19:45 03:40 CBC w Diff WBC RBC Hgb Hct MCV MCH MCHC RDW Plt Count MPV Neut % (Auto) Lymph % (Auto) [place] % (Auto) Eos % (Auto) Baso % (Auto) Neut # (Auto) Lymph # (Auto) [place] # (Auto) Eos # (Auto) Baso # (Auto) WBC Differential Differential Comment ESR 5 PT INR APTT Fibrinogen Sodium Potassium Chloride Carbon Dioxide Anion Gap BUN Creatinine Estimated GFR POC Glucose Random Glucose Calcium Total Creatine Kinase CK-MB (CK-2) CK-MB (CK-2) % Troponin I C-Reactive Protein Total Protein (PEP) 8.2 Triglycerides Cholesterol LDL Cholesterol, Calc HDL Cholesterol Cholesterol/HDL Ratio Vitamin B12 233 Folate 14.8 TSH Urine Color Urine Clarity Urine pH Ur Specific [place] Urine Protein Urine Glucose (UA) Urine Ketones Urine Occult Blood Urine Nitrate Urine Bilirubin Urine Urobilinogen Ur Leukocyte Esterase Urine RBC Urine WBC Urine Bacteria Urine Mucus Micro UA Comment Ur Microscopic Review Urine Culture Comments Urine Opiates Screen Neg Ur Barbiturates Screen Neg Ur Amphetamines Screen Neg U Benzodiazepines Scrn Neg Urine Cocaine Screen Neg U Cannabinoids Screen Pos H Blood Type Blood Type Recheck Antibody Screen 11/07/18 11/07/18 03:40 03:50 CBC w Diff WBC RBC Hgb Hct MCV MCH MCHC RDW Plt Count MPV Neut % (Auto) Lymph % (Auto) [place] % (Auto) Eos % (Auto) Baso % (Auto) Neut # (Auto) Lymph # (Auto) [place] # (Auto) Eos # (Auto) Baso # (Auto) WBC Differential Differential Comment ESR PT INR APTT Fibrinogen Sodium 137 Potassium 4.1 Chloride 103 Carbon Dioxide 29.3 Anion Gap 5 BUN 18 Creatinine 0.82 Estimated GFR Greater than 89 POC Glucose Random Glucose 94 Calcium 8.9 Total Creatine Kinase 203 CK-MB (CK-2) CK-MB (CK-2) % Troponin I C-Reactive Protein Total Protein (PEP) Triglycerides 51 Cholesterol 151 LDL Cholesterol, Calc 92 HDL Cholesterol 49.1 Cholesterol/HDL Ratio 3.07 Vitamin B12 Folate TSH Urine Color Yellow Urine Clarity Clear Urine pH 6.0 Ur Specific [place] Greater than 1.060 H Urine Protein 30 H Urine Glucose (UA) Negative Urine Ketones Trace H Urine Occult Blood Negative Urine Nitrate Negative Urine Bilirubin Negative Urine Urobilinogen 0.2 Ur Leukocyte Esterase Negative Urine RBC 2 Urine WBC 2 Urine Bacteria Occasional H Urine Mucus Many H Micro UA Comment Culture not ind Ur Microscopic Review Not Reportable Urine Culture Comments Culture not ind Urine Opiates Screen Ur Barbiturates Screen Ur Amphetamines Screen U Benzodiazepines Scrn Urine Cocaine Screen U Cannabinoids Screen Blood Type Blood Type Recheck Antibody Screen - Imaging Impressions Chest X-Ray 11/06/18 14:51 CONCLUSION: No acute cardiopulmonary disease. Head CT 11/06/18 14:51 CONCLUSION: 1. Abnormal area of diminished attenuation right frontal lobe not present previously could potentially be an area of infarction, however underlying cerebritis or even abscess formation difficult to exclude. Report was called by [myself to Dr. James at 3:41 PM. ] Head CTA 11/06/18 14:56 CONCLUSION: 1. Unremarkable study. Neck CTA 11/06/18 14:56 CONCLUSION: 1. Unremarkable study. Head MRI 11/06/18 15:40 CONCLUSION: 1. Multiple areas of restriction diffusion capacity bilaterally one of which corresponds to an area of lucency on the patient's brain CT characteristic of acute infarction and possibly embolic episode should be entertained. Unusual case of cerebritis is difficult to exclude. Head/Brain Mag Res Venography 11/06/18 18:49 CONCLUSION: Brain MRV within normal limits. Assessment and Plan - Plan 23-year-old male right handed male with no significant past medical history presented to the ED with complaints of a headache intermitted for 3 weeks and right-sided numbness for the last 2 days. no recent URI symptoms, no slurring of speech, no SZ reported states HIV tested negative 2 years ago, no history of STDs Acute infarction - involving multiple areas on MRI presenting with -Headaches with transient right sided numbness- symptoms improved R/o Vasculitis -Cerebritis - MRI reviewed and shows multiple areas of restriction diffusion capacity bilaterally one of which corresponds to an area of lucency on the patient's brain CT characteristic of acute infarction and possibly embolic episode vs Cerebritis Neck CTA unremarkable Head CTA unremarkable Head CT reviewed and shows an abnormal area of diminished attenuation right frontal lobe not present previously could potentially be an area of infarction - ESR, CRP normal - Neurology - Dr. Pierre saw patient- LP ordered - Holter monitor - 2D echo ordered- may need RENETTA -ASA daily- held - for LP -EEG pending -PT eval Elevated CK on admission-improved improved with fluids- continue - states he recently raced with his brother about a week ago - denies any muscle aches or joint pain sinus bradycardia- on telemetry -TSH normal DVT prophylaxis: SCDs Code Status: Full Discussed Condition With: patient and girlfriend
--- NOTE | 2018-11-07 10:38 | MG ---
cc: Bandar Stinson MD SUBJECTIVE: 5-6 Hz theta activity 20-60 microvolts with admixed 2-3 Hz delta activity occurring. IMPRESSION: Asymmetric slowing in the left compared to the right hemisphere. Good EEG variability reactivity. The single EKG showing sinus rhythm. Reduced driving with photic stimulation. INTERPRETATION: Mild to moderate encephalopathy with asymmetric left greater than right hemispheric slowing. Clinical correlation. MD CHUCHO Gamez/lizzy , 10:23 AM , 10:29 AM
[2018-11-07 15:14] LABS: Anti-Nuclear Antibody Screen Neg (Neg)
--- NOTE | 2018-11-07 18:12 | ECHRPT ---
Indication: SEPSIS POSS ENDOCARDITIS CONCLUSIONS The left ventricular systolic function is normal with an estimated ejection fraction in the range of 60-65%. Left ventricular diastolic function parameters are normal. There is trace tricuspid valve regurgitation. BP: / HR: Rhythm: Sinus MEASUREMENTS (Male / Female) Normal Values Technical Quality:Fair 2D ECHO LV Diastolic Diameter PLAX 4.0 cm 4.2 - 5.9 / 3.9 - 5.3 cm LV Systolic Diameter PLAX 2.4 cm IVS Diastolic Thickness 0.6 cm 0.6 - 1.0 / 0.6 - 0.9 cm LVPW Diastolic Thickness 0.6 cm 0.6 - 1.0 / 0.6 - 0.9 cm LV Relative Wall Thickness 0.3 RV Internal Dim ED PLAX 2.8 cm LVOT Diameter 1.7 cm Aortic Root Diameter 2.2 cm LA Systolic Diameter LX 2.8 cm 3.0 - 4.0 / 2.7 - 3.8 cm M-MODE AV Cusp Separation MM 1.5 cm DOPPLER AV Peak Velocity 136.0 cm/s AV Peak Gradient 7.4 mmHg LVOT Peak Velocity 105.0 cm/s LVOT Peak Gradient 4.4 mmHg AV Area Cont Eq pk 1.8 cm Mitral E Point Velocity 85.9 cm/s Mitral A Point Velocity 45.9 cm/s Mitral E to A Ratio 1.9 LV E' Lateral Velocity 29.0 cm/s Mitral E to LV E' Lateral Ratio 3.0 LV E' Septal Velocity 13.0 cm/s Mitral E to LV E' Septal Ratio 6.6 TR Peak Velocity 141.0 cm/s TR Peak Gradient 8.0 mmHg Right Atrial Pressure 10.0 mmHg Pulmonary Artery Systolic Pressu 18.0 mmHg Right Ventricular Systolic Press 18.0 mmHg PV Peak Velocity 122.0 cm/s PV Peak Gradient 6.0 mmHg FINDINGS LEFT VENTRICLE Normal left ventricular size. Wall thickness is normal. The left ventricular systolic function is normal with an estimated ejection fraction in the range of 60-65%. Left ventricular diastolic function parameters are normal. RIGHT VENTRICLE Normal right ventricular size and systolic function. LEFT ATRIUM The left atrial size is normal. RIGHT ATRIUM The right atrial size is normal. ATRIAL SEPTUM Normal atrial septal thickness without atrial level shunting by limited color doppler interrogation. AORTA The aortic root and proximal ascending aorta are normal in size on limited imaging. MITRAL VALVE Structurally normal mitral valve. No mitral valve stenosis or regurgitation. AORTIC VALVE Trileaflet aortic valve. No aortic valve stenosis or regurgitation. TRICUSPID VALVE Structurally normal tricuspid valve. No tricuspid valve stenosis. There is trace tricuspid valve regurgitation. The estimated pulmonary arterial pressure is 18 mmHg. PULMONARY VALVE No pulmonary valve regurgitation or stenosis. VESSELS The inferior vena cava is normal in size. PERICARDIUM No pericardial effusion. Shashi Massey DO (Electronically Signed) Final Date:07 November 2018 18:10
--- NOTE | 2018-11-07 21:21 | ECG ---
Date Performed: 11/06/2018 Time Performed: 15:56:21 PTAGE: 23 years EKG: Sinus rhythm POSSIBLE RIGHT ATRIAL ENLARGEMENT LEFT ATRIAL ENLARGEMENT POSSIBLE RIGHT VENTRICULAR CONDUCTION NITESH Y ABNORMAL ECG NO PREVIOUS TRACING DOCTOR: Isaiah Sparks Interpretating Date/Time 11/07/2018 21:18:43
--- NOTE | 2018-11-08 01:32 | MB ---
cc: Shashi Massey DO DATE: 11/07/2018 REASON FOR CONSULTATION: Multiple infarcts on MRI. HISTORY OF PRESENT ILLNESS: Alexey Masters is a pleasant 23-year-old male who presented to [facility] due to headache for the past for the past 3 weeks and right-sided numbness for the last 2 days. The patient states that he has had a throbbing headache in the frontal region that is 2/10 for the past 3 weeks, which is worse with light and associated with nauseousness. He has also had numbness on the right side of his body for the last 2 days. He was seen by Neurology and underwent an MRI of his head, which showed multiple areas concerning for acute infarction. As there was a concern for an embolic issue, I was asked to evaluate him for consideration of a transesophageal echocardiogram. The patient is currently n.p.o., but with a plan for a lumbar puncture today. When seen he is currently hemodynamically stable without chest pain or shortness of breath. PAST MEDICAL HISTORY: Denies. PAST SURGICAL HISTORY: Denies. ALLERGIES: SHELLFISH. MEDICATIONS: Denies. FAMILY HISTORY: Denies. SOCIAL HISTORY: The patient denies tobacco or alcohol abuse. He does smoke marijuana. No other drug use. REVIEW OF SYSTEMS: Fourteen systems were reviewed including osteopathic. Pertinent positives and negatives above, otherwise negative. PHYSICAL EXAMINATION: VITAL SIGNS: Temperature 98.2, heart rate 53, blood pressure 118/64, respirations 17, pulse oximetry 100% on 2 liters. GENERAL: The patient appears well, in no acute distress, alert, awake and oriented x3. HEENT: Extraocular muscles intact. Mucous membranes moist. NECK: Supple. No JVD at 45 degrees. No carotid bruits heard bilaterally. Carotid upstroke is brisk in nature. HEART: Regular rate and rhythm. Positive first and second heart sounds with no noted murmurs, gallops or rubs. LUNGS: Clear to auscultation bilaterally. No wheezes, rales or rhonchi. ABDOMEN: Soft, nontender, nondistended. No organomegaly noted. EXTREMITIES: Show no clubbing, cyanosis or edema. Femoral and distal pulses intact bilaterally. NEUROLOGIC: No focal deficits. SKIN: Warm, dry and intact. OSTEOPATHIC: No kyphoscoliosis, lordosis or paraspinal tender points. LABORATORY DATA: Hemoglobin 15.2, hematocrit 46.5, platelets 255. Potassium 4.1, BUN 18, creatinine 0.82. Troponin less than 0.02. Electrocardiogram (11/06/2018 at 1556): Sinus rhythm, possible right atrial enlargement, possible left atrial enlargement, incomplete right bundle branch block. IMPRESSIONS: 1. Multiple areas of possible infarction on MRI. 2. Acute cerebrovascular accident of unknown cause. 3. Cannabis use. RECOMMENDATIONS: 1. Mr. Masters presented with neurologic symptoms and MRI showing multiple infarcts, possibly an embolic cause. 2. Because this, will be recommended a transesophageal echocardiogram. They will plan on doing a lumbar puncture today, so he will be placed on the schedule for tomorrow. 3. Risks, benefits, and alternatives have been explained to him and he consents to such. 4. Further recommendations will be made after transesophageal echocardiogram. Thank you for allowing me to see Alexey Masters. If there are any questions, please do not hesitate to call. Shashi Massey DO VGP/sj , 11:33 PM , 11:42 PM
[2018-11-08] MEDS: Sod Chloride 0.9% Inj 1,000 ML IV.CONT SCH ×3 (01:56→22:31)
[2018-11-08] MEDS ORDERED: Chlorhexidine Gluconate 2% 1 Pack (2 Cloths) TOPICAL ONE (05:32)
[2018-11-08] MEDS ORDERED: Sodium Chlor 0.9% Inj 500 ML IV.SIG SCH (06:00)
--- NOTE | 2018-11-08 07:46 | P.PNNEU ---
Subjective Active Medications: Active Medications Acetaminophen (Tylenol) 650 mg PO Q4H PRN PRN Reason: HEADACHE Last Admin: 11/06/18 23:01 Dose: 650 mg Cyanocobalamin (Vitamin B12 Inj) 1,000 mcg SQ DAILY [facility] Stop: 11/12/18 08:59 Sodium Chloride (Ns Inj) 1,000 mls @ 100 mls/hr IV.CONT .Q10H [facility] Last Admin: 11/08/18 01:56 Dose: Not Given Lactated Ringer's (Lr 1000 Ml Inj) 1,000 mls @ 30 mls/hr IV.SIG .Q24H [facility] Stop: 11/09/18 05:44 Sodium Chloride (Ns Inj) 500 mls @ 30 mls/hr IV.SIG .Q10H [facility] Multivitamins (Theragran) 1 tab PO DAILY [facility] Ondansetron HCl (Zofran Inj) 4 mg IV.PUSH Q6H PRN PRN Reason: NAUSEA Last Admin: 11/06/18 23:02 Dose: 4 mg Allergies/Adverse Reactions: Allergies Allergy/AdvReac Type Severity Reaction Status Date / Time shellfish derived Allergy Vomiting Verified 11/06/18 14:49 Physical Exam Vital signs: Vital Signs 11/07/18 08:00 11/07/18 09:00 11/07/18 09:11 Temperature 98.2 F Pulse Rate 53 L 55 L Respiratory Rate 17 Blood Pressure 118/64 Pulse Oximetry 100 99 11/07/18 12:00 11/07/18 16:00 11/07/18 19:59 Temperature 98.3 F 98.4 F Pulse Rate 52 L 66 52 L Respiratory Rate 17 17 Blood Pressure 125/66 94/50 L Pulse Oximetry 98 94 L 11/07/18 21:20 11/07/18 23:19 11/07/18 23:56 Temperature 98.3 F Pulse Rate 60 53 L Respiratory Rate 16 Blood Pressure 109/75 Pulse Oximetry 99 96 11/08/18 01:06 11/08/18 01:57 11/08/18 03:57 Temperature 98.6 F Pulse Rate 45 L 48 L Respiratory Rate 15 16 Blood Pressure 122/63 Pulse Oximetry 98 11/08/18 04:00 11/08/18 06:06 Temperature 98.4 F Pulse Rate 51 L Respiratory Rate 16 16 Blood Pressure 116/70 Pulse Oximetry 99 Intake & Output 11/07/18 11/08/18 11/08/18 18:59 06:59 18:59 Intake Total 1720 / 1720 1520 / 1520 Balance 1720 / 1720 1520 / 1520 Weight 44.2 kg Intake: IV 1000 / 1000 1000 / 1000 NS Inj 1,000 ML @ 100 mls/hr IV 1000 / 1000 1000 / 1000 .CONT .Q10H [facility] Rx#:[id number] Oral 720 / 720 520 / 520 Other: # Voids 3 2 Date of Last Bowel Movement 11/04/18 11/04/18 # Bowel Movements 0 0 Narrative: no new posey or other neuro sx vff face sym nl speech 03/05 Objective Laboratory Results - last 24 hr 11/06/18 11/06/18 11/07/18 19:45 19:45 10:52 Rheumatoid Factor Scrn Negative Rheumatoid Factor Titer Not Reportable [facility] Screen Neg RPR Nonreactive HIV 1&2 Ab/P24 Ag 4thGn Nonreactive Toxoplasma IgM Ab 11/07/18 10:52 Rheumatoid Factor Scrn Rheumatoid Factor Titer [facility] Screen RPR HIV 1&2 Ab/P24 Ag 4thGn Toxoplasma IgM Ab Negative Microbiology 11/06/18 19:50 Aerobic Blood Culture - Preliminary Blood - Peripheral No growth in 1 day Anaerobic Blood Culture - Preliminary No growth in 1 day 11/06/18 19:50 Aerobic Blood Culture - Preliminary Blood - Peripheral No growth in 1 day Anaerobic Blood Culture - Preliminary No growth in 1 day Review/Management - Review/Management Plan: imp mrv nl mult abn areas brain cta some irregularity and beading ? vasculitis call center professional vs cardioembolic mri abn are not typical for infarcts have some edema esr and crp nl do LP and GAMA 11/08/18 echo neg labs ok so far' b12 shot possible vasculitis plan today is LP and gama stable neuro sr
--- NOTE | 2018-11-08 08:33 | P.PN ---
Subjective Interval history: had a good night no headaches, fever, no nausea or vomiting feels stronger Physical Exam Vital signs: Vital Signs 11/07/18 09:00 11/07/18 09:11 11/07/18 12:00 Temperature 98.3 F Pulse Rate 55 L 52 L Respiratory Rate 17 Blood Pressure 125/66 Pulse Oximetry 99 98 11/07/18 16:00 11/07/18 19:59 11/07/18 21:20 Temperature 98.4 F 98.3 F Pulse Rate 66 52 L 60 Respiratory Rate 17 16 Blood Pressure 94/50 L 109/75 Pulse Oximetry 94 L 99 11/07/18 23:19 11/07/18 23:56 11/08/18 01:06 Temperature 98.6 F Pulse Rate 53 L 45 L Respiratory Rate 15 Blood Pressure 122/63 Pulse Oximetry 96 98 11/08/18 01:57 11/08/18 03:57 11/08/18 04:00 Temperature 98.4 F Pulse Rate 48 L 51 L Respiratory Rate 16 16 Blood Pressure 116/70 Pulse Oximetry 99 11/08/18 06:06 Temperature Pulse Rate Respiratory Rate 16 Blood Pressure Pulse Oximetry Intake & Output 11/07/18 11/08/18 11/08/18 18:59 06:59 18:59 Intake Total 1720 / 1720 1520 / 1520 Balance 1720 / 1720 1520 / 1520 Weight 44.2 kg Intake: IV 1000 / 1000 1000 / 1000 NS Inj 1,000 ML @ 100 mls/hr IV 1000 / 1000 1000 / 1000 .CONT .Q10H [facility] Rx#:[id number] Oral 720 / 720 520 / 520 Other: # Voids 3 2 Date of Last Bowel Movement 11/04/18 11/04/18 # Bowel Movements 0 0 Narrative: awake and alert, no acute distress afebrile anicteric, pupils equally reactive to light, EOM full range of motion no facial symmetry, tongue midline neck supple, no rigidity lungs- no rales regular rhythm HR- 58- sinus, abdomen soft, nontender extremities no edema grossly no sensory deficits mmotor 5/5 all extremities gait steady Results - Labs CBC & Chem 7: 11/06/18 14:50 11/07/18 03:50 Laboratory Results - last 24 hr 11/06/18 11/06/18 11/07/18 19:45 19:45 10:52 Rheumatoid Factor Scrn Negative Rheumatoid Factor Titer Not Reportable [facility] Screen Neg RPR Nonreactive HIV 1&2 Ab/P24 Ag 4thGn Nonreactive Toxoplasma IgM Ab 11/07/18 10:52 Rheumatoid Factor Scrn Rheumatoid Factor Titer [facility] Screen RPR HIV 1&2 Ab/P24 Ag 4thGn Toxoplasma IgM Ab Negative Microbiology 11/06/18 19:50 Blood - Peripheral Aerobic Blood Culture - Preliminary No growth in 1 day 11/06/18 19:50 Blood - Peripheral Anaerobic Blood Culture - Preliminary No growth in 1 day 11/06/18 19:50 Blood - Peripheral Aerobic Blood Culture - Preliminary No growth in 1 day 11/06/18 19:50 Blood - Peripheral Anaerobic Blood Culture - Preliminary No growth in 1 day - Imaging Impressions Head CTA 11/06/18 14:56 CONCLUSION: 1. Unremarkable study. Assessment and Plan - Plan 23-year-old male right handed male with no significant past medical history presented to the ED with complaints of a headache intermitted for 3 weeks and right-sided numbness for the last 2 days. no recent URI symptoms, no slurring of speech, no SZ reported states HIV tested negative 2 years ago, no history of STDs Acute infarction - involving multiple areas on MRI presenting with -Headaches with transient right sided numbness- symptoms improved - no neuro deficits R/o Vasculitis -Cerebritis - MRI reviewed and shows multiple areas of restriction diffusion capacity bilaterally one of which corresponds to an area of lucency on the patient's brain CT characteristic of acute infarction and possibly embolic episode vs Cerebritis Neck CTA unremarkable Head CTA unremarkable Head CT reviewed and shows an abnormal area of diminished attenuation right frontal lobe not present previously could potentially be an area of infarction - ESR, CRP normal - Neurology - Dr. Pierre ff- for LP today - Holter monitor - 2D echo - unremarkable - cardiology consulted for RENETTA -ASA daily- held - for LP -EEG - non soecific encephalopathy -PT daily Elevated CK on admission-improved improved with fluids- continue - states he recently raced with his brother about a week ago - denies any muscle aches or joint pain sinus bradycardia- on telemetry -TSH normal DVT prophylaxis: SCDs Code Status: Full Discussed Condition With: patient and girlfriend
--- NOTE | 2018-11-08 09:35 | P.RAD ---
Post Procedure Progress Note - Pre Procedure Diagnosis (1) Acute CVA (cerebrovascular accident) - Post Procedure Diagnosis (1) Acute CVA (cerebrovascular accident) - Procedure Information Procedure Date: 11/08/18 Supervising Radiologist: Ben Rolon MD Estimated blood loss (mL): 0 Anesthesia: Local - Plan of Activity Patient to Unit: Nursing Unit Patient Condition: Fair Additional Comments: LP completed without difficulty Single puncture at L3/L4 29cc of clear csf collected. Full report to follow See PACS Report for procedural detail/treatment.
--- NOTE | 2018-11-08 10:07 | IR ---
EXAM DATE: 11/08/2018 9:36 AM EST AGE/SEX: 23 years / Male INDICATIONS: Patient presents with right sided numbness and recurrent headaches in need of lumbar pu ncture for further evaluation. CLINICAL DATA: This is the patient's initial encounter. Patient reports that signs and symptoms have been present for 2 days and indicates a pain score of 0/10. MEDICAL/SURGICAL HISTORY: None. None. COMPARISON: No prior exams available for comparison. FLUORO TIME (min): 1.3 IMAGE SERIES: 1 RADIATION DOSE: 32.0 mGy CAK ACCESS SITE: L3-4 LUMBAR PUNCTURE TIME: 09:06 hours FLUID: Total volume of 29 cc of clear fluid was removed. Fluid was sent to lab for ordered studies. ; PROCEDURE: 1. Fluoroscopic guided lumbar puncture. The risks, benefits and alternatives to the procedure were explained and verbal and written consent w as obtained. The site was prepped in sterile fashion. Full sterile technique was used, including ca p, mask, sterile gloves and gown and a large sterile sheet. Hand hygiene and 2% chlorhexidine and/or betadine/alcohol prep was utilized per protocol for cutaneous antisepsis. The skin and subcutaneous tissues were infiltrated with local anesthetic solution. With fluoroscopic guidance the lumbar thecal sac was punctured at the level above. The fluid describ ed above was removed without difficulty. The patient tolerated the procedure well and there were no complications. CONCLUSION: 1. Uncomplicated fluoroscopically guided lumbar puncture. Electronically signed by: Ben Rolon MD Board Certified Radiologist 11/08/2018 10:06 AM EST
[2018-11-08 10:39] LABS: Lymphocytes, CSF 100 %
[2018-11-08 10:40] LABS: RBC on Tube 1 98 /mm3
[2018-11-08 10:42] LABS: Neutrophils,CSF 0 %
[2018-11-08 10:44] LABS: RBC on Tube 1 98 /mm3; RBC on Tube 4 13 /mm3
--- NOTE | 2018-11-08 22:30 | P.PNCA ---
Subjective Interval history: No events overnight Feels well RENETTA showing no source of cerebrovascular embolism Medications and Allergies Active Medications: Active Medications Acetaminophen (Tylenol) 650 mg PO Q4H PRN PRN Reason: HEADACHE Last Admin: 11/06/18 23:01 Dose: 650 mg Cyanocobalamin (Vitamin B12 Inj) 1,000 mcg SQ DAILY [facility] Stop: 11/12/18 08:59 Last Admin: 11/08/18 12:43 Dose: 1,000 mcg Sodium Chloride (Ns Inj) 1,000 mls @ 100 mls/hr IV.CONT .Q10H [facility] Last Admin: 11/08/18 12:42 Dose: 100 mls/hr Lactated Ringer's (Lr 1000 Ml Inj) 1,000 mls @ 30 mls/hr IV.SIG .Q24H [facility] Stop: 11/09/18 05:44 Last Admin: 11/08/18 12:43 Dose: Not Given Sodium Chloride (Ns Inj) 500 mls @ 30 mls/hr IV.SIG .Q10H [facility] Last Admin: 11/08/18 10:58 Dose: Not Given Multivitamins (Theragran) 1 tab PO DAILY [facility] Last Admin: 11/08/18 12:43 Dose: 1 tab Ondansetron HCl (Zofran Inj) 4 mg IV.PUSH Q6H PRN PRN Reason: NAUSEA Last Admin: 11/06/18 23:02 Dose: 4 mg Allergies Allergy/AdvReac Type Severity Reaction Status Date / Time shellfish derived Allergy Vomiting Verified 11/06/18 14:49 Home Medications Medication Instructions Recorded Confirmed Type No Known Home Medications 11/06/18 11/06/18 History Physical Exam Vital signs: Vital Signs 11/07/18 23:19 11/07/18 23:56 11/08/18 01:06 Temperature 98.6 F Pulse Rate 53 L 45 L Respiratory Rate 15 Blood Pressure 122/63 Pulse Oximetry 96 98 11/08/18 01:57 11/08/18 03:57 11/08/18 04:00 Temperature 98.4 F Pulse Rate 48 L 51 L Respiratory Rate 16 16 Blood Pressure 116/70 Pulse Oximetry 99 11/08/18 06:06 11/08/18 08:00 11/08/18 08:42 Temperature 98.7 F Pulse Rate 51 L 55 L Respiratory Rate 16 16 Blood Pressure 116/60 Pulse Oximetry 96 11/08/18 12:56 11/08/18 16:00 Temperature 98.2 F 98.9 F Pulse Rate 58 L 63 Respiratory Rate 18 18 Blood Pressure 116/64 106/57 L Pulse Oximetry 96 96 Intake & Output 11/08/18 11/08/18 11/09/18 06:59 18:59 06:59 Intake Total 1520 / 1520 1959 Balance 1520 / 1520 1959 Weight 44.2 kg Intake: IV 1000 / 1000 1000 / 1000 NS Inj 1,000 ML @ 100 mls/hr IV 1000 / 1000 1000 / 1000 .CONT .Q10H [facility] Rx#:[id number] Oral 520 / 520 960 / 960 Other: # Voids 2 3 Date of Last Bowel Movement 11/04/18 11/04/18 # Bowel Movements 0 0 Narrative: awake and alert, no acute distress afebrile anicteric, pupils equally reactive to light, EOM full range of motion no facial symmetry, tongue midline neck supple, no rigidity lungs- no rales regular rhythm HR- 58- sinus, abdomen soft, nontender extremities no edema grossly no sensory deficits mmotor 5/5 all extremities gait steady Results 11/06/18 14:50 11/07/18 03:50 Lipids 11/07/18 Range/Units 03:50 Triglycerides 51 (42-150) mg/dL Cholesterol 151 (120-200) mg/dL HDL Cholesterol 49.1 (40.0-60.0) mg/dL Cholesterol/HDL Ratio 3.07 Ratio Comprehensive Metabolic Panel 11/07/18 Range/Units 03:50 Sodium 137 (136-145) meq/L Potassium 4.1 (3.5-5.1) meq/L Chloride 103 (98-107) meq/L Carbon Dioxide 29.3 (21.0-32.0) meq/L BUN 18 (7-18) mg/dL Creatinine 0.82 (0.60-1.30) mg/dL Calcium 8.9 (8.5-10.1) mg/dL Intake and Output 11/08/18 11/08/18 11/08/18 06:59 14:59 22:59 Intake Total 520 / 520 1000 / 1000 960 / 960 Balance 520 / 520 1000 / 1000 960 / 960 Intake: IV 1000 / 1000 NS Inj 1,000 ML @ 100 mls/hr IV 1000 / 1000 .CONT .Q10H [facility] Rx#:[id number] Oral 520 / 520 960 / 960 Other: # Voids 2 3 Date of Last Bowel Movement 11/04/18 # Bowel Movements 0 0 Weight 44.2 kg - Imaging and Cardiology Imaging: Impressions Head CTA 11/06/18 14:56 CONCLUSION: 1. Unremarkable study. Lumbar Puncture Fluoroscopy 11/08/18 08:26 CONCLUSION: 1. Uncomplicated fluoroscopically guided lumbar puncture. Assessment and Plan - Assessment (1) Bradycardia Code(s): R00.1 - Bradycardia, unspecified Status: Acute (2) Acute CVA (cerebrovascular accident) Code(s): I63.9 - Cerebral infarction, unspecified Status: Acute - Plan 1) CVA RENETTA showing no source of cerebrovascular embolism No shunt noted Possible vasculitis Further work up per neurology 2) Bradycardia Asymptomatic Normal in a young male
--- NOTE | 2018-11-08 23:06 | ECHRPT ---
Indication: CE CONCLUSIONS The left ventricular systolic function is normal with an estimated ejection fraction in the range of 55-60%. Normal left atrial appendage size with no evidence of thrombus formation. No atrial level shunt is demonstrated by color flow Doppler or agitated saline imaging. Trivial pulmonary valve regurgitation. BP: / HR: Rhythm: Sinus Technical Quality: Medications Complications Proc. Components Anesthesia at the bedside for sedation FINDINGS LEFT VENTRICLE Normal left ventricular size. Wall thickness is normal. The left ventricular systolic function is normal with an estimated ejection fraction in the range of 55-60%. No regional wall motion abnormalities are present. RIGHT VENTRICLE Normal right ventricular size and systolic function. LEFT ATRIUM The left atrial size is normal. RIGHT ATRIUM The right atrial size is normal. ATRIAL APPENDAGES Normal left atrial appendage size with no evidence of thrombus formation. The velocities in the left atrial appendage are normal. ATRIAL SEPTUM Normal atrial septal thickness. No atrial level shunt is demonstrated by color flow Doppler or agitated saline imaging. AORTA The aortic root and proximal ascending aorta are normal in size on limited imaging. MITRAL VALVE Structurally normal mitral valve. No mitral valve stenosis or regurgitation. AORTIC VALVE Trileaflet aortic valve. No aortic valve stenosis or regurgitation. TRICUSPID VALVE Structurally normal tricuspid valve. No tricuspid valve stenosis or regurgitation. VESSELS The pulmonary valve is not well visualized. Trivial pulmonary valve regurgitation. Shashi Massey DO (Electronically Signed) Final Date:08 November 2018 23:04
[2018-11-09] MEDS: Sod Chloride 0.9% Inj 1,000 ML IV.CONT SCH ×2 (05:53→17:33)
--- NOTE | 2018-11-09 07:34 | P.PNNEU ---
Subjective Active Medications: Active Medications Acetaminophen (Tylenol) 650 mg PO Q4H PRN PRN Reason: HEADACHE Last Admin: 11/06/18 23:01 Dose: 650 mg Cyanocobalamin (Vitamin B12 Inj) 1,000 mcg SQ DAILY [facility] Stop: 11/12/18 08:59 Last Admin: 11/08/18 12:43 Dose: 1,000 mcg Sodium Chloride (Ns Inj) 1,000 mls @ 100 mls/hr IV.CONT .Q10H [facility] Last Admin: 11/09/18 05:53 Dose: 100 mls/hr Sodium Chloride (Ns Inj) 500 mls @ 30 mls/hr IV.SIG .Q10H [facility] Last Admin: 11/08/18 10:58 Dose: Not Given Multivitamins (Theragran) 1 tab PO DAILY [facility] Last Admin: 11/08/18 12:43 Dose: 1 tab Ondansetron HCl (Zofran Inj) 4 mg IV.PUSH Q6H PRN PRN Reason: NAUSEA Last Admin: 11/06/18 23:02 Dose: 4 mg Allergies/Adverse Reactions: Allergies Allergy/AdvReac Type Severity Reaction Status Date / Time shellfish derived Allergy Vomiting Verified 11/06/18 14:49 Physical Exam Vital signs: Vital Signs 11/08/18 08:00 11/08/18 08:42 11/08/18 12:56 Temperature 98.7 F 98.2 F Pulse Rate 51 L 55 L 58 L Respiratory Rate 16 18 Blood Pressure 116/60 116/64 Pulse Oximetry 96 96 11/08/18 16:00 11/08/18 20:00 11/08/18 21:20 Temperature 98.9 F 99.7 F H Pulse Rate 63 73 56 L Respiratory Rate 18 15 Blood Pressure 106/57 L 119/65 Pulse Oximetry 96 100 11/08/18 23:56 11/09/18 00:11 11/09/18 00:55 Temperature 98.9 F Pulse Rate 56 L 59 L Respiratory Rate 16 16 Blood Pressure 123/71 Pulse Oximetry 99 11/09/18 03:55 11/09/18 04:20 Temperature 98.9 F Pulse Rate 58 L 54 L Respiratory Rate 16 Blood Pressure 116/66 Pulse Oximetry 100 Intake & Output 11/08/18 11/09/18 11/09/18 18:59 06:59 18:59 Intake Total 1959 Balance 1959 Weight 44.4 kg Intake: IV 1000 / 1000 1000 / 1000 NS Inj 1,000 ML @ 100 mls/hr IV 1000 / 1000 1000 / 1000 .CONT .Q10H [facility] Rx#:[id number] Oral 960 / 960 900 / 900 Other: # Voids 3 3 Date of Last Bowel Movement 11/04/18 11/04/18 # Bowel Movements 0 0 Narrative: awake alert nlspeech 5/5 vff face sym no posey Objective Laboratory Results - last 24 hr 11/06/18 11/08/18 11/08/18 19:45 09:06 09:06 Protein S Activity Cancelled Total Creatine Kinase CSF Volume (1) CSF Supernat Color (1) CSF Gross Blood (1) CSF WBC (1) 13 H CSF RBC (1) 98 H CSF Volume (2) CSF Supernat Color (2) CSF Gross Blood (2) CSF Volume (3) CSF Supernat Color (3) CSF Gross Blood (3) CSF Volume (4) CSF Supernat Color (4) CSF Gross Blood (4) CSF WBC (4) CSF RBC (4) CSF Neutrophils % CSF Lymphocytes % CSF Glucose CSF Total Protein CSF N.mening B/E.coli K1 Cancelled CSF N.meningitidis A/Y Cancelled Bacterial Ag Source Cancelled H.influenzae Type B Ag Cancelled N. meningitidis C/W 135 Cancelled Group B Strep Antigen Cancelled S. pneumoniae Antigen Cancelled 11/08/18 11/08/18 11/08/18 09:06 09:06 09:06 Protein S Activity Total Creatine Kinase CSF Volume (1) 6.0 CSF Supernat Color (1) Clear CSF Gross Blood (1) Trace A CSF WBC (1) 13 H CSF RBC (1) 98 H CSF Volume (2) 7.0 CSF Supernat Color (2) Clear CSF Gross Blood (2) Trace A CSF Volume (3) 7.0 CSF Supernat Color (3) Clear CSF Gross Blood (3) Trace A CSF Volume (4) 8.5 CSF Supernat Color (4) Clear CSF Gross Blood (4) 0 CSF WBC (4) 4 CSF RBC (4) 13 H CSF Neutrophils % 0 CSF Lymphocytes % 100 CSF Glucose 53 CSF Total Protein 34.1 CSF N.mening B/E.coli K1 CSF N.meningitidis A/Y Bacterial Ag Source H.influenzae Type B Ag N. meningitidis C/W 135 Group B Strep Antigen S. pneumoniae Antigen 11/08/18 13:05 Protein S Activity Total Creatine Kinase 155 CSF Volume (1) CSF Supernat Color (1) CSF Gross Blood (1) CSF WBC (1) CSF RBC (1) CSF Volume (2) CSF Supernat Color (2) CSF Gross Blood (2) CSF Volume (3) CSF Supernat Color (3) CSF Gross Blood (3) CSF Volume (4) CSF Supernat Color (4) CSF Gross Blood (4) CSF WBC (4) CSF RBC (4) CSF Neutrophils % CSF Lymphocytes % CSF Glucose CSF Total Protein CSF N.mening B/E.coli K1 CSF N.meningitidis A/Y Bacterial Ag Source H.influenzae Type B Ag N. meningitidis C/W 135 Group B Strep Antigen S. pneumoniae Antigen Microbiology 11/06/18 19:50 Aerobic Blood Culture - Preliminary Blood - Peripheral No growth in 2 days Anaerobic Blood Culture - Preliminary No growth in 2 days 11/06/18 19:50 Aerobic Blood Culture - Preliminary Blood - Peripheral No growth in 2 days Anaerobic Blood Culture - Preliminary No growth in 2 days 11/08/18 09:06 Fungal Smear - Final Cerebral Spinal Fluid - Lumbar Puncture No fungal elements seen 11/08/18 09:06 Gram Stain - Final Lumbar Puncture Review/Management - Review/Management Plan: imp mrv nl mult abn areas brain cta some irregularity and beading ? vasculitis mantel craftsman vs cardioembolic mri abn are not typical for infarcts have some edema esr and crp nl do LP and GAMA 11/08/18 echo neg labs ok so far' b12 shot possible vasculitis plan today is LP and gama stable neuro sr 11/09/18 sr gama neg LP neg labs so far neg plan is 60 pred this am and i will dw neurorads about agram vs shands for possible mantel craftsman vasculitis? will repeat mri
--- NOTE | 2018-11-09 08:24 | P.PN ---
Subjective Interval history: awake and alert, no complains of headaches, nausea or vomiting speech clear Physical Exam Vital signs: Vital Signs 11/08/18 08:42 11/08/18 12:56 11/08/18 16:00 Temperature 98.2 F 98.9 F Pulse Rate 55 L 58 L 63 Respiratory Rate 18 18 Blood Pressure 116/64 106/57 L Pulse Oximetry 96 96 11/08/18 20:00 11/08/18 21:20 11/08/18 23:56 Temperature 99.7 F H Pulse Rate 73 56 L 56 L Respiratory Rate 15 Blood Pressure 119/65 Pulse Oximetry 100 11/09/18 00:11 11/09/18 00:55 11/09/18 03:55 Temperature 98.9 F Pulse Rate 59 L 58 L Respiratory Rate 16 16 Blood Pressure 123/71 Pulse Oximetry 99 11/09/18 04:20 Temperature 98.9 F Pulse Rate 54 L Respiratory Rate 16 Blood Pressure 116/66 Pulse Oximetry 100 Intake & Output 11/08/18 11/09/18 11/09/18 18:59 06:59 18:59 Intake Total 1959 Balance 1959 Weight 44.4 kg Intake: IV 1000 / 1000 1000 / 1000 NS Inj 1,000 ML @ 100 mls/hr IV 1000 / 1000 1000 / 1000 .CONT .Q10H [facility] Rx#:[id number] Oral 960 / 960 900 / 900 Other: # Voids 3 3 Date of Last Bowel Movement 11/04/18 11/04/18 # Bowel Movements 0 0 Results - Labs CBC & Chem 7: 11/06/18 14:50 11/07/18 03:50 Laboratory Results - last 24 hr 11/06/18 11/08/18 11/08/18 19:45 09:06 09:06 Protein S Activity Cancelled Total Creatine Kinase CSF Volume (1) CSF Supernat Color (1) CSF Gross Blood (1) CSF WBC (1) 13 H CSF RBC (1) 98 H CSF Volume (2) CSF Supernat Color (2) CSF Gross Blood (2) CSF Volume (3) CSF Supernat Color (3) CSF Gross Blood (3) CSF Volume (4) CSF Supernat Color (4) CSF Gross Blood (4) CSF WBC (4) CSF RBC (4) CSF Neutrophils % CSF Lymphocytes % CSF Glucose CSF Total Protein CSF N.mening B/E.coli K1 Cancelled CSF N.meningitidis A/Y Cancelled Bacterial Ag Source Cancelled H.influenzae Type B Ag Cancelled N. meningitidis C/W 135 Cancelled Group B Strep Antigen Cancelled S. pneumoniae Antigen Cancelled 11/08/18 11/08/18 11/08/18 09:06 09:06 09:06 Protein S Activity Total Creatine Kinase CSF Volume (1) 6.0 CSF Supernat Color (1) Clear CSF Gross Blood (1) Trace A CSF WBC (1) 13 H CSF RBC (1) 98 H CSF Volume (2) 7.0 CSF Supernat Color (2) Clear CSF Gross Blood (2) Trace A CSF Volume (3) 7.0 CSF Supernat Color (3) Clear CSF Gross Blood (3) Trace A CSF Volume (4) 8.5 CSF Supernat Color (4) Clear CSF Gross Blood (4) 0 CSF WBC (4) 4 CSF RBC (4) 13 H CSF Neutrophils % 0 CSF Lymphocytes % 100 CSF Glucose 53 CSF Total Protein 34.1 CSF N.mening B/E.coli K1 CSF N.meningitidis A/Y Bacterial Ag Source H.influenzae Type B Ag N. meningitidis C/W 135 Group B Strep Antigen S. pneumoniae Antigen 11/08/18 13:05 Protein S Activity Total Creatine Kinase 155 CSF Volume (1) CSF Supernat Color (1) CSF Gross Blood (1) CSF WBC (1) CSF RBC (1) CSF Volume (2) CSF Supernat Color (2) CSF Gross Blood (2) CSF Volume (3) CSF Supernat Color (3) CSF Gross Blood (3) CSF Volume (4) CSF Supernat Color (4) CSF Gross Blood (4) CSF WBC (4) CSF RBC (4) CSF Neutrophils % CSF Lymphocytes % CSF Glucose CSF Total Protein CSF N.mening B/E.coli K1 CSF N.meningitidis A/Y Bacterial Ag Source H.influenzae Type B Ag N. meningitidis C/W 135 Group B Strep Antigen S. pneumoniae Antigen Microbiology 11/06/18 19:50 Blood - Peripheral Aerobic Blood Culture - Preliminary No growth in 2 days 11/06/18 19:50 Blood - Peripheral Anaerobic Blood Culture - Preliminary No growth in 2 days 11/06/18 19:50 Blood - Peripheral Aerobic Blood Culture - Preliminary No growth in 2 days 11/06/18 19:50 Blood - Peripheral Anaerobic Blood Culture - Preliminary No growth in 2 days 11/08/18 09:06 Cerebral Spinal Fluid - Lumbar Puncture Fungal Smear - Final No fungal elements seen 11/08/18 09:06 Lumbar Puncture Gram Stain - Final - Imaging Impressions Lumbar Puncture Fluoroscopy 11/08/18 08:26 CONCLUSION: 1. Uncomplicated fluoroscopically guided lumbar puncture. Assessment and Plan - Plan 23-year-old male right handed male with no significant past medical history presented to the ED with complaints of a headache intermitted for 3 weeks and right-sided numbness for the last 2 days. no recent URI symptoms, no slurring of speech, no SZ reported states HIV tested negative 2 years ago, no history of STDs Acute infarction - involving multiple areas on MRI presenting with -Headaches with transient right sided numbness- symptoms improved - no neuro deficits R/o Vasculitis -Cerebritis - S/P LP- 11/08- ff cultures S/P RENETTA 11/08- no source of cardioembolic infarcts MRI reviewed and shows multiple areas of restriction diffusion capacity bilaterally one of which corresponds to an area of lucency on the patient's brain CT characteristic of acute infarction and possibly embolic episode vs Cerebritis Neck CTA unremarkable Head CTA unremarkable Head CT reviewed and shows an abnormal area of diminished attenuation right frontal lobe not present previously could potentially be an area of infarction - ESR, CRP normal - Neurology - Dr. Pierre ff- plan to - Holter monitor - 2D echo - unremarkable - -ASA daily- held - yesterday for LP- restart today -EEG - non specific encephalopathy -PT daily -repeat MRI today Elevated CK on admission-improved improved with fluids- continue - states he recently raced with his brother about a week ago - denies any muscle aches or joint pain sinus bradycardia- on telemetry -TSH normal DVT prophylaxis: SCDs Code Status: Full Discussed Condition With: patient and girlfriend
[2018-11-09] MEDS ORDERED: Gadobutrol PF 2 MMOL/2 ML Vial (for RAD) IV.SIG ONE (09:01)
[2018-11-09 09:02] LABS: Methylmalonic Acid 0.14 nmol/mL (<=0.40)
--- NOTE | 2018-11-09 09:11 | MR ---
EXAM DATE: 11/09/2018 8:58 AM EST AGE/SEX: 23 years / Male INDICATIONS: Inability to ambulate. Right sided numbness. CLINICAL DATA: This is the patient's subsequent encounter. Patient reports that signs and symptoms h ave been present for 3 days and indicates a pain score of 0/10. MEDICAL/SURGICAL HISTORY: None. None. COMPARISON: HPO, MR HEAD W & W/O CONTRAST, 11/06/2018. . TECHNIQUE: Multiplanar, multisequence examination of the brain was performed without and with 4 ml Ga davist (gadobutrol) contrast as a single exam dose. FINDINGS: Again noted are multiple areas of abnormal diffusion and restriction diffusion capacity involving the right frontal lobe, bilateral parietal lobes and left posterior temporal occipital junction. These a re fairly similar not significantly changed compared to the prior examination except for the area inv olving the left posterior parieto-occipital junction demonstrates slight increase in area of abnormal edema and effusions since the prior study. There is no hemorrhage or mass effect. CONCLUSION: 1. The left posterior temporal occipital junction area of abnormal diffusion appears slightly worse since 11/06/2018 and the right frontal and bilateral parietal lobe areas are similar not significantly changed. Electronically signed by: Yani Hernandez MD Board Certified Radiologist 11/09/2018 9:10 AM EST
[2018-11-09] MEDS: Pantoprazole Sodium 20 MG DR Tablet PO SCH (10:29)
[2018-11-09] MEDS: predniSONE 20 MG Tablet PO SCH (10:30)
[2018-11-09] MEDS ORDERED: fentaNYL Citrate Inj 250 MCG/5 ML Ampul ONE (14:06)
[2018-11-09 15:52] LABS: Homocysteine (Cardiovascular) 10.7 umol/L (<11.4)
[2018-11-09 17:03] LABS: Factor V Leiden Mutation Negative (Negative); Protein C Antigen 112 % (70-150)
[2018-11-09] MEDS ORDERED: Sod Chloride 0.9% Inj 1,000 ML IV.CONT SCH (18:00)
--- NOTE | 2018-11-09 20:01 | IR ---
EXAM DATE: 11/09/2018 4:19 PM EST AGE/SEX: 23 years / Male INDICATIONS: Patient presents with right-sided numbness and headache in need of a diagnostic Cerebra l Angiogram. CLINICAL DATA: This is the patient's initial encounter. Patient reports that signs and symptoms have been present for 3 weeks and indicates a pain score of 0/10. MEDICAL/SURGICAL HISTORY: None. None. COMPARISON: No prior exams available for comparison. FLUORO TIME (min): 11.1 IMAGE SERIES: 14 RADIATION DOSE: 651.4mGY CAK ACCESS SITE: Right femoral artery SEDATION TIME (min): 60 CONTRAST (cc): 35 Visipaque (iodixanol) MEDICATION(S): 2 mg midazolam (Versed) IV ; 100 mcg fentanyl (Sublimaze) IV ; ; ; DEVICE(S): Right common femoral artery Syvek pad ; ; ; ; ; ; . . PROCEDURE : 1. Ultrasound-guided puncture of the access site. 2. Conscious sedation with continuous EKG and Oximetry monitoring. 3. Selective catheterization, right vertebral artery 4. Angiography of the right vertebral artery 5. Selective catheterization, right internal carotid artery 6. Right internal carotid cerebral arteriography 7. Left internal carotid artery catheterization 8. Selective left internal carotid artery cerebral arteriography 9. Selective catheterization, left vertebral artery 10. Left vertebral cerebral arteriography The risks, benefits and alternatives to the procedure were explained and verbal and written consent w as obtained. The site was prepped in sterile fashion. Full sterile technique was used, including ca p, mask, sterile gloves and gown and a large sterile sheet. Hand hygiene and 2% chlorhexidine and/or betadine/alcohol prep was utilized per protocol for cutaneous antisepsis. Sterile gel and sterile p robe cover were utilized for ultrasound guidance. The skin and subcutaneous tissues were infiltrated with local anesthetic solution. With ultrasound and fluoroscopic guidance the selected artery was punctured and a vascular sheath was placed. A 4 [place] JB2 catheter was used to initially select the right vertebral artery. Right vertebral cere bral arteriography was performed utilizing biplane digital subtraction technique. The catheter was then used to select the right internal carotid artery. Right internal carotid cerebr al arteriography was then performed in multiple projections and with biplane technique. The left internal carotid artery was then selectively catheterized and similarly evaluated with bipla ne and multiprojectional DSA. Finally, the left vertebral artery was selectively catheterized and evaluated with biplane DSA. The puncture site was closed with manual pressure and hemostasis was obtained. The patient tolerated the procedure well and there were no complications. Conscious sedation was performed with the prescribed dosages and duration as above in the presence of an independent trained radiology nurse to assist in the monitoring of the patient. EKG and oximetry remained stable throughout the procedure. FINDINGS: There are mild changes of cerebral vasospastic and vasculitic disease with mild tapering/be ading most notably involving the cavernous carotids bilaterally and the proximal left anterior cerebr al artery, however also present to some extent in the proximal posterior cerebral arteries bilaterall y and occasionally noted in small parenchymal vessels in both anterior and posterior circulation terr itories. There is no evidence of major vessel occlusion. No aneurysm or vascular malformation is iden tified. The cerebral venous structures are symmetric patent and unremarkable. CONCLUSION: Mild multifocal vasospastic and vasculitic changes involving both anterior and posterior circulation proximal and parenchymal vessels. The appearance is less pronounced than on the recent prior CTA. Thi s would therefore be more suggestive of primary cerebral angiitis or transient cerebral vasoconstrict ion syndrome than of chronic vasculitic changes from systemic disease entities. Electronically signed by: Ben Jenninsg MD Board Certified Radiologist 11/09/2018 8:00 PM EST
[2018-11-09] MEDS: Acetaminophen 325 MG Tablet PO PRN (21:42)
--- NOTE | 2018-11-09 23:41 | HM ---
Date Performed: 11/07/2018 Time Performed: 21:27:00 HOOKUP DATE: 11/07/18 09:27:00 PM Mon ANALYSIS START TIME: 11/07/2018 9:32:00 PM ANALYSIS END TIME: 11/08/2018 9:20:38 PM PATIENT AGE: 23 PATIENT HEIGHT PATIENT WEIGHT DRUG LIST PATIENT DIAGNOSIS: CVA TEST NARRATIVE: The patient's average heart rate was 60 BPM. No episodes of tachycardia wer e noted. Heart rates less than 50 BPM were noted 43% of the time. No pauses exceeding 2.0 second s were noted. No ventricular ectopics were noted. 3 supraventricular ectopics, which represen rosalind < 1% of the total beat count, were noted. The highest supraventricular ectopic frequency occurre d from 03:00 AM to 04:00 AM Tue. During this time 2 SVE(s) occurred. No episodes of ST depressio n (defined as -1.0 mm or more) were noted in channel 1. No episodes of ST depression (defined as -1. 0 mm or more) were noted in channel 2. No episodes of ST depression (defined as -1.0 mm or more) wer e noted in channel 3. EXTREMELY POOR QUALITY TRACING, NO DIARY MAINTAINED TEST INTERPRETATION: Sinus rhythm Sinus bradycardia PACs Signed by : Dariana Richey
[2018-11-09 23:51] LABS: Dil Russell Viper Venom Conf ( ND (NEGATIVE); Dil Russell Viper Venom Time M ND (CORRECTED); Lupus Anticoagulant PTT Screen 35 seconds (< OR = 40)
[2018-11-10] MEDS: Sod Chloride 0.9% Inj 1,000 ML IV.CONT SCH ×3 (02:00→22:19)
--- NOTE | 2018-11-10 02:21 | P.PNCA ---
Subjective Interval history: No events overnight Medications and Allergies Active Medications: Active Medications Acetaminophen (Tylenol) 650 mg PO Q4H PRN PRN Reason: HEADACHE Last Admin: 11/09/18 21:42 Dose: 650 mg Cyanocobalamin (Vitamin B12 Inj) 1,000 mcg SQ DAILY [facility] Stop: 11/12/18 08:59 Last Admin: 11/09/18 10:31 Dose: 1,000 mcg Sodium Chloride (Ns Inj) 1,000 mls @ 100 mls/hr IV.CONT .Q10H [facility] Last Infusion: 11/09/18 17:34 Dose: 100 mls/hr Sodium Chloride (Ns Inj) 500 mls @ 30 mls/hr IV.SIG .Q10H [facility] Last Admin: 11/08/18 10:58 Dose: Not Given Sodium Chloride (Ns Inj) 1,000 mls @ 100 mls/hr IV.CONT .Q10H [facility] Stop: 11/10/18 03:59 Last Admin: 11/09/18 17:34 Dose: 100 mls/hr Multivitamins (Theragran) 1 tab PO DAILY [facility] Last Admin: 11/09/18 10:31 Dose: 1 tab Ondansetron HCl (Zofran Inj) 4 mg IV.PUSH Q6H PRN PRN Reason: NAUSEA Last Admin: 11/06/18 23:02 Dose: 4 mg Pantoprazole Sodium (Protonix) 20 mg PO DAILY [facility] Last Admin: 11/09/18 10:29 Dose: 20 mg Prednisone (Deltasone) 60 mg PO DAILY [facility] Last Admin: 11/09/18 10:30 Dose: 60 mg Allergies Allergy/AdvReac Type Severity Reaction Status Date / Time shellfish derived Allergy Vomiting Verified 11/06/18 14:49 Home Medications Medication Instructions Recorded Confirmed Type No Known Home Medications 11/06/18 11/06/18 History Physical Exam Vital signs: Vital Signs 11/09/18 03:55 11/09/18 04:20 11/09/18 08:00 Temperature 98.9 F Pulse Rate 58 L 54 L Respiratory Rate 16 Blood Pressure 116/66 Pulse Oximetry 100 98 11/09/18 11:25 11/09/18 15:45 11/09/18 16:00 Temperature 97.7 F 97.4 F L Pulse Rate 62 59 L 55 L Respiratory Rate 17 15 17 Blood Pressure 118/73 125/67 126/67 Pulse Oximetry 96 99 95 11/09/18 16:15 11/09/18 16:30 11/09/18 16:45 Temperature Pulse Rate 55 L 52 L 57 L Respiratory Rate 16 18 16 Blood Pressure 121/64 127/66 125/74 Pulse Oximetry 96 96 94 L 11/09/18 17:54 Temperature 98.1 F Pulse Rate 55 L Respiratory Rate 16 Blood Pressure 123/58 L Pulse Oximetry 98 Intake & Output 11/09/18 11/09/18 11/10/18 06:59 18:59 06:59 Intake Total 1900 / 1900 350 / 350 Balance 1900 / 1900 350 / 350 Weight 44.4 kg Intake: IV 1000 / 1000 350 / 350 NS Inj 1,000 ML @ 100 mls/hr IV 1000 / 1000 350 / 350 .CONT .Q10H [facility] Rx#:[id number] Oral 900 / 900 Other: # Voids 3 Date of Last Bowel Movement 11/04/18 11/06/18 11/06/18 # Bowel Movements 0 Narrative: GENERAL: NAD, AAOx3 SKIN: Warm and dry. HEAD: Atraumatic. Normocephalic. EYES: Pupils equal and round. No scleral icterus. No injection or drainage. ENT: No nasal bleeding or discharge. Mucous membranes pink and moist. NECK: Trachea midline. No JVD. CARDIOVASCULAR: Regular rate and rhythm. RESPIRATORY: No accessory muscle use. Clear to auscultation. Breath sounds equal bilaterally. GASTROINTESTINAL: Abdomen soft, non-tender, nondistended. Hepatic and splenic margins not palpable. MUSCULOSKELETAL: Extremities without clubbing, cyanosis, or edema. No obvious deformities. NEUROLOGICAL: Awake and alert. No obvious cranial nerve deficits. Motor grossly within normal limits. Five out of 5 muscle strength in the arms and legs. Normal speech. PSYCHIATRIC: Appropriate mood and affect; insight and judgment normal. Results 11/06/18 14:50 11/07/18 03:50 Intake and Output 11/09/18 11/09/18 11/10/18 14:59 22:59 06:59 Intake Total 350 / 350 Balance 350 / 350 Intake: IV 350 / 350 NS Inj 1,000 ML @ 100 mls/hr IV 350 / 350 .CONT .Q10H [facility] Rx#:[id number] Other: Date of Last Bowel Movement 11/06/18 11/06/18 - Imaging and Cardiology Imaging: Impressions Lumbar Puncture Fluoroscopy 11/08/18 08:26 CONCLUSION: 1. Uncomplicated fluoroscopically guided lumbar puncture. Cerebral Angiography 11/09/18 00:00 CONCLUSION: Mild multifocal vasospastic and vasculitic changes involving both anterior and posterior circulation proximal and parenchymal vessels. The appearance is less pronounced than on the recent prior CTA. This would therefore be more suggestive of primary cerebral angiitis or transient cerebral vasoconstriction syndrome than of chronic vasculitic changes from systemic disease entities. Head MRI 11/09/18 00:00 CONCLUSION: 1. The left posterior temporal occipital junction area of abnormal diffusion appears slightly worse since 11/06/2018 and the right frontal and bilateral parietal lobe areas are similar not significantly changed. Assessment and Plan - Assessment (1) Bradycardia Code(s): R00.1 - Bradycardia, unspecified Status: Acute (2) Acute CVA (cerebrovascular accident) Code(s): I63.9 - Cerebral infarction, unspecified Status: Acute - Plan 1) CVA RENETTA showing no source of cerebrovascular embolism No shunt noted Angiogram showing possible vasculitis/spastic disease 2) Bradycardia Asymptomatic Normal in a young male 3) No further cardiovascular work up Will see PRN, call with questions
[2018-11-10 03:49] LABS: Activated Protein C Resistance 4.7 ratio (> OR = 2.1)
--- NOTE | 2018-11-10 07:50 | P.PNNEU ---
Subjective Active Medications: Active Medications Acetaminophen (Tylenol) 650 mg PO Q4H PRN PRN Reason: HEADACHE Last Admin: 11/09/18 21:42 Dose: 650 mg Cyanocobalamin (Vitamin B12 Inj) 1,000 mcg SQ DAILY [facility] Stop: 11/12/18 08:59 Last Admin: 11/09/18 10:31 Dose: 1,000 mcg Sodium Chloride (Ns Inj) 1,000 mls @ 100 mls/hr IV.CONT .Q10H [facility] Last Infusion: 11/09/18 17:34 Dose: 100 mls/hr Sodium Chloride (Ns Inj) 500 mls @ 30 mls/hr IV.SIG .Q10H [facility] Last Admin: 11/08/18 10:58 Dose: Not Given Multivitamins (Theragran) 1 tab PO DAILY [facility] Last Admin: 11/09/18 10:31 Dose: 1 tab Ondansetron HCl (Zofran Inj) 4 mg IV.PUSH Q6H PRN PRN Reason: NAUSEA Last Admin: 11/06/18 23:02 Dose: 4 mg Pantoprazole Sodium (Protonix) 20 mg PO DAILY [facility] Last Admin: 11/09/18 10:29 Dose: 20 mg Prednisone (Deltasone) 60 mg PO DAILY [facility] Last Admin: 11/09/18 10:30 Dose: 60 mg Allergies/Adverse Reactions: Allergies Allergy/AdvReac Type Severity Reaction Status Date / Time shellfish derived Allergy Vomiting Verified 11/06/18 14:49 Physical Exam Vital signs: Vital Signs 11/09/18 08:00 11/09/18 11:25 11/09/18 15:45 Temperature 97.7 F 97.4 F L Pulse Rate 62 59 L Respiratory Rate 17 15 Blood Pressure 118/73 125/67 Pulse Oximetry 98 96 99 11/09/18 16:00 11/09/18 16:15 11/09/18 16:30 Temperature Pulse Rate 55 L 55 L 52 L Respiratory Rate 17 16 18 Blood Pressure 126/67 121/64 127/66 Pulse Oximetry 95 96 96 11/09/18 16:45 11/09/18 17:54 11/09/18 20:45 Temperature 98.1 F 99.2 F Pulse Rate 57 L 55 L 88 Respiratory Rate 16 16 17 Blood Pressure 125/74 123/58 L 127/69 Pulse Oximetry 94 L 98 98 11/10/18 01:05 Temperature 98.1 F Pulse Rate 91 H Respiratory Rate 17 Blood Pressure 127/59 L Pulse Oximetry 100 Intake & Output 11/09/18 11/10/18 11/10/18 18:59 06:59 18:59 Intake Total 350 / 350 1000 / 1000 Balance 350 / 350 1000 / 1000 Weight 44.4 kg Intake: IV 350 / 350 NS Inj 1,000 ML @ 100 mls/hr IV 350 / 350 .CONT .Q10H [facility] Rx#:[id number] Oral 1000 / 1000 Other: # Voids 3 Date of Last Bowel Movement 11/06/18 11/06/18 # Bowel Movements 0 Narrative: sr nl exam Objective Laboratory Results - last 24 hr 11/06/18 11/06/18 11/06/18 19:45 19:45 19:45 Thrombin Time ND Lupus Anticoagulant LA PTT Screen 35 Lupus Anticoag aPTT Dil Dao Viper Venom dRVVT Screen 39 LA dRVVT Confirm ND dRVVT Confirm Interp dRVVT Mix ND dRVVT Mix Pat/Norm 1:1 dRVVT Mix Interpret Hexagonal Phase Confirm ND Protein C Antigen 112 APC Resistance 4.7 Protein S Activity Cancelled Antithrombin III Activ 154 H Factor V Leiden Mutat Negative Factor V Leiden Interp . Fact V Leiden Review By See below Factor VIII Activity 79 Thiamine 114 Methylmalonic Acid 0.14 Homocysteine Cardiovas 10.7 Ser Oligoclonal Bands CSF Oligoclonal Bands CSF Olig Protein Interp CSF VDRL Beta-2-GPI IgG Ab <9 Beta-2-GPI IgA Ab <9 Beta-2-GPI IgM Ab <9 Phosphatidylserine IgG Less than 10.0 Phosphatidylserine IgA Less than 20.0 Phosphatidylserine IgM Less than 25.0 Anti-Cardiolipin IgG Ab <9.4 Anti-Cardiolipin IgA Ab Anti-Cardiolipin IgM Ab <9.4 Toxoplasma IgG Ab 11/06/18 11/07/18 11/07/18 19:45 10:52 10:52 Thrombin Time ND Lupus Anticoagulant LA PTT Screen Lupus Anticoag aPTT 37.0 Dil Dao Viper Venom 40.0 dRVVT Screen LA dRVVT Confirm dRVVT Confirm Interp ND dRVVT Mix dRVVT Mix Pat/Norm 1:1 ND dRVVT Mix Interpret ND Hexagonal Phase Confirm ND Protein C Antigen APC Resistance Protein S Activity 118 Antithrombin III Activ Factor V Leiden Mutat Factor V Leiden Interp Fact V Leiden Review By Factor VIII Activity Thiamine Methylmalonic Acid Homocysteine Cardiovas Ser Oligoclonal Bands CSF Oligoclonal Bands CSF Olig Protein Interp CSF VDRL Beta-2-GPI IgG Ab Less than 9.0 Beta-2-GPI IgA Ab Less than 9.0 Beta-2-GPI IgM Ab Less than 9.0 Phosphatidylserine IgG Phosphatidylserine IgA Phosphatidylserine IgM Anti-Cardiolipin IgG Ab Less than 14.0 Anti-Cardiolipin IgA Ab Less than 11.0 Anti-Cardiolipin IgM Ab Less than 12.0 Toxoplasma IgG Ab <7.20 11/08/18 11/08/18 09:06 09:06 Thrombin Time Lupus Anticoagulant LA PTT Screen Lupus Anticoag aPTT Dil Dao Viper Venom dRVVT Screen LA dRVVT Confirm dRVVT Confirm Interp dRVVT Mix dRVVT Mix Pat/Norm 1:1 dRVVT Mix Interpret Hexagonal Phase Confirm Protein C Antigen APC Resistance Protein S Activity Antithrombin III Activ Factor V Leiden Mutat Factor V Leiden Interp Fact V Leiden Review By Factor VIII Activity Thiamine Methylmalonic Acid Homocysteine Cardiovas Ser Oligoclonal Bands 0 CSF Oligoclonal Bands 0 CSF Olig Protein Interp 0 CSF VDRL Non-reactive Beta-2-GPI IgG Ab Beta-2-GPI IgA Ab Beta-2-GPI IgM Ab Phosphatidylserine IgG Phosphatidylserine IgA Phosphatidylserine IgM Anti-Cardiolipin IgG Ab Anti-Cardiolipin IgA Ab Anti-Cardiolipin IgM Ab Toxoplasma IgG Ab Microbiology 11/08/18 09:06 Acid Fast Bacilli Smear - Final Cerebral Spinal Fluid - Lumbar Puncture No acid fast bacilli seen 11/06/18 19:50 Aerobic Blood Culture - Preliminary Blood - Peripheral No growth in 3 days Anaerobic Blood Culture - Preliminary No growth in 3 days 11/06/18 19:50 Aerobic Blood Culture - Preliminary Blood - Peripheral No growth in 3 days Anaerobic Blood Culture - Preliminary No growth in 3 days 11/08/18 09:06 Gram Stain - Final Lumbar Puncture CSF Culture - Preliminary No growth in 24 hours Review/Management - Review/Management Plan: imp mrv nl mult abn areas brain cta some irregularity and beading ? vasculitis house manager vs cardioembolic mri abn are not typical for infarcts have some edema esr and crp nl do LP and GAMA 11/08/18 echo neg labs ok so far' b12 shot possible vasculitis plan today is LP and gama stable neuro sr 11/09/18 sr gama neg LP neg labs so far neg plan is 60 pred this am and i will dw neurorads about [facility] vs [facility] for possible house manager vasculitis? will repeat mri 11/10/18 mri left occipital area a little larger no enhancement rufinoam has some areas of definite vasoconstriciton proximal arteries and am having neurorad and a cva specialist from [facility] nahun review it pred 60 for now need defintive dx vasculitis vs angiitis vs vasospasm bp low check pyruvic acid clinically stable
[2018-11-10] MEDS: Pantoprazole Sodium 20 MG DR Tablet PO SCH (09:00)
[2018-11-10] MEDS: Acetaminophen 325 MG Tablet PO PRN (09:00)
[2018-11-10] MEDS: predniSONE 20 MG Tablet PO SCH (09:01)
[2018-11-10] MEDS: Sod Chloride 0.9% Inj 1,000 ML IV.SIG SCH (12:18)
--- NOTE | 2018-11-10 16:49 | P.PN ---
Subjective Interval history: looks good neurologically no headaches, no focal weakness afebrile Physical Exam Vital signs: Vital Signs 11/09/18 17:54 11/09/18 20:45 11/10/18 01:05 Temperature 98.1 F 99.2 F 98.1 F Pulse Rate 55 L 88 91 H Respiratory Rate 16 17 17 Blood Pressure 123/58 L 127/69 127/59 L Pulse Oximetry 98 98 100 11/10/18 08:00 11/10/18 12:00 Temperature 98.2 F 97.8 F Pulse Rate 81 71 Respiratory Rate 17 17 Blood Pressure 143/68 H 115/59 L Pulse Oximetry 100 100 Intake & Output 11/09/18 11/10/18 11/10/18 18:59 06:59 18:59 Intake Total 350 / 350 1000 / 1000 1999 Balance 350 / 350 1000 / 1000 1999 Weight 44.4 kg Intake: IV 350 / 350 1999 NS Inj 1,000 ML @ 100 mls/hr IV 350 / 350 1999 .CONT .Q10H [facility] Rx#:[id number] Oral 1000 / 1000 Other: # Voids 3 Date of Last Bowel Movement 11/06/18 11/06/18 11/05/18 # Bowel Movements 0 Results - Labs CBC & Chem 7: 11/06/18 14:50 11/07/18 03:50 Laboratory Results - last 24 hr 11/06/18 11/07/18 11/08/18 19:45 10:52 09:06 Sickle Cell Screen Thrombin Time ND ND Lupus Anticoagulant LA PTT Screen 35 Lupus Anticoag aPTT 37.0 Dil Dao Viper Venom 40.0 dRVVT Screen 39 LA dRVVT Confirm ND dRVVT Confirm Interp ND dRVVT Mix ND dRVVT Mix Pat/Norm 1:1 ND dRVVT Mix Interpret ND Hexagonal Phase Confirm ND ND Protein C Antigen 112 APC Resistance 4.7 Antithrombin III Activ 154 H Factor V Leiden Mutat Negative Factor V Leiden Interp . Fact V Leiden Review By See below CSF VDRL CSF Lyme Disease DNA Not detected Beta-2-GPI IgG Ab <9 Less than 9.0 Beta-2-GPI IgA Ab <9 Less than 9.0 Beta-2-GPI IgM Ab <9 Less than 9.0 Phosphatidylserine IgG Less than 10.0 Phosphatidylserine IgA Less than 20.0 Phosphatidylserine IgM Less than 25.0 Anti-Cardiolipin IgG Ab <9.4 Less than 14.0 Anti-Cardiolipin IgA Ab Less than 11.0 Anti-Cardiolipin IgM Ab <9.4 Less than 12.0 11/08/18 11/10/18 09:06 10:09 Sickle Cell Screen Negative Thrombin Time Lupus Anticoagulant LA PTT Screen Lupus Anticoag aPTT Dil Dao Viper Venom dRVVT Screen LA dRVVT Confirm dRVVT Confirm Interp dRVVT Mix dRVVT Mix Pat/Norm 1:1 dRVVT Mix Interpret Hexagonal Phase Confirm Protein C Antigen APC Resistance Antithrombin III Activ Factor V Leiden Mutat Factor V Leiden Interp Fact V Leiden Review By CSF VDRL Non-reactive CSF Lyme Disease DNA Beta-2-GPI IgG Ab Beta-2-GPI IgA Ab Beta-2-GPI IgM Ab Phosphatidylserine IgG Phosphatidylserine IgA Phosphatidylserine IgM Anti-Cardiolipin IgG Ab Anti-Cardiolipin IgA Ab Anti-Cardiolipin IgM Ab Microbiology 11/06/18 19:50 Blood - Peripheral Aerobic Blood Culture - Preliminary No growth in 4 days 11/06/18 19:50 Blood - Peripheral Anaerobic Blood Culture - Preliminary No growth in 4 days 11/06/18 19:50 Blood - Peripheral Aerobic Blood Culture - Preliminary No growth in 4 days 11/06/18 19:50 Blood - Peripheral Anaerobic Blood Culture - Preliminary No growth in 4 days 11/08/18 09:06 Lumbar Puncture Gram Stain - Final 11/08/18 09:06 Lumbar Puncture CSF Culture - Preliminary No growth in 48 hours 11/08/18 09:06 Cerebral Spinal Fluid - Lumbar Puncture Acid Fast Bacilli Smear - Final No acid fast bacilli seen - Imaging Impressions Cerebral Angiography 11/09/18 00:00 CONCLUSION: Mild multifocal vasospastic and vasculitic changes involving both anterior and posterior circulation proximal and parenchymal vessels. The appearance is less pronounced than on the recent prior CTA. This would therefore be more suggestive of primary cerebral angiitis or transient cerebral vasoconstriction syndrome than of chronic vasculitic changes from systemic disease entities. - Procedures 11/08- LP Assessment and Plan - Plan 23-year-old male right handed male with no significant past medical history presented to the ED with complaints of a headache intermitted for 3 weeks and right-sided numbness for the last 2 days. no recent URI symptoms, no slurring of speech, no SZ reported states HIV tested negative 2 years ago, no history of STDs Acute infarction - involving multiple areas on MRI presenting with -Headaches with transient right sided numbness- symptoms improved - no neuro deficits - neruo looks good need defintive dx vasculitis vs angiitis vs vasospasm- Dr. Batista send films to [facility] for review R/o Vasculitis -Cerebritis - S/P LP- 11/08- ff cultures- negative so far S/P RENETTA 11/08- no source of cardioembolic infarcts MRI reviewed and shows multiple areas of restriction diffusion capacity bilaterally one of which corresponds to an area of lucency on the patient's brain CT characteristic of acute infarction and possibly embolic episode vs Cerebritis Neck CTA unremarkable Head CTA unremarkable Head CT reviewed and shows an abnormal area of diminished attenuation right frontal lobe not present previously could potentially be an area of infarction - ESR, CRP normal - Holter monitor- unreamrakbel - 2D echo - unremarkable - -ASA daily- restarted today 11/09 -EEG - non specific encephalopathy -PT daily -repeat MRI 11/09- worsening but clinically looks good - trail of Prendisone 60 mg today per Neurology Elevated CK on admission-improved improved with fluids- continue - states he recently raced with his brother about a week ago - denies any muscle aches or joint pain sinus bradycardia- on telemetry -TSH normal DVT prophylaxis: SCDs Code Status: Full Discussed Condition With: patient and girlfriend
[2018-11-10] MEDS ORDERED: Melatonin 5 MG Tablet PO ONE (21:18)
[2018-11-10] MEDS ORDERED: Sodium Chloride 0.9% 2 ML Flush PRN IV.FLUSH (22:05)
[2018-11-11] MEDS: Sod Chloride 0.9% Inj 1,000 ML IV.SIG SCH (00:30)
--- NOTE | 2018-11-11 07:29 | P.PNNEU ---
Subjective Active Medications: Active Medications Acetaminophen (Tylenol) 650 mg PO Q4H PRN PRN Reason: HEADACHE Last Admin: 11/10/18 09:00 Dose: 650 mg Cyanocobalamin (Vitamin B12 Inj) 1,000 mcg SQ DAILY [facility] Stop: 11/12/18 08:59 Last Admin: 11/10/18 09:00 Dose: 1,000 mcg Sodium Chloride (Ns Inj) 1,000 mls @ 100 mls/hr IV.CONT .Q10H [facility] Last Admin: 11/10/18 22:19 Dose: 100 mls/hr Sodium Chloride (Ns Inj) 500 mls @ 30 mls/hr IV.SIG .Q10H [facility] Last Admin: 11/08/18 10:58 Dose: Not Given Sodium Chloride (Ns Inj) 1,000 mls @ 70 mls/hr IV.SIG .[id number] [facility] Last Admin: 11/11/18 00:30 Dose: Not Given Multivitamins (Theragran) 1 tab PO DAILY [facility] Last Admin: 11/10/18 09:00 Dose: 1 tab Ondansetron HCl (Zofran Inj) 4 mg IV.PUSH Q6H PRN PRN Reason: NAUSEA Last Admin: 11/06/18 23:02 Dose: 4 mg Pantoprazole Sodium (Protonix) 20 mg PO DAILY [facility] Last Admin: 11/10/18 09:00 Dose: 20 mg Prednisone (Deltasone) 60 mg PO DAILY [facility] Last Admin: 11/10/18 09:01 Dose: 60 mg Sodium Chloride (Ns Flush) 2 ml IV.FLUSH BID [facility] Sodium Chloride (Ns Flush) 2 ml IV.FLUSH PRN PRN PRN Reason: FLUSH AFTER USING IV ACCESS Verapamil HCl (Isoptin Sr) 120 mg PO DAILY [facility] Last Admin: 11/10/18 12:17 Dose: 120 mg Allergies/Adverse Reactions: Allergies Allergy/AdvReac Type Severity Reaction Status Date / Time shellfish derived Allergy Vomiting Verified 11/06/18 14:49 Physical Exam Vital signs: Vital Signs 11/10/18 08:00 11/10/18 12:00 11/10/18 16:00 Temperature 98.2 F 97.8 F 98.5 F Pulse Rate 81 71 100 H Respiratory Rate 17 17 17 Blood Pressure 143/68 H 115/59 L 138/60 Pulse Oximetry 100 100 98 11/10/18 19:35 11/10/18 21:56 11/10/18 23:50 Temperature 98.8 F 97.3 F L Pulse Rate 73 51 L Respiratory Rate 20 20 Blood Pressure 97/54 L 97/53 L Pulse Oximetry 99 99 97 11/11/18 04:00 Temperature 97.2 F L Pulse Rate 51 L Respiratory Rate 18 Blood Pressure 105/59 L Pulse Oximetry 99 Intake & Output 11/10/18 11/11/18 11/11/18 18:59 06:59 18:59 Intake Total 2960 / 2960 200 / 200 Balance 2960 / 2960 200 / 200 Weight 43.6 kg Intake: IV 1999 NS Inj 1,000 ML @ 100 mls/hr IV 1999 .CONT .Q10H [facility] Rx#:[id number] Oral 960 / 960 200 / 200 Other: # Voids 4 3 Date of Last Bowel Movement 11/10/18 11/10/18 # Bowel Movements 1 0 Narrative: awake alert no new co minimal posey yest Objective Laboratory Results - last 24 hr 11/06/18 11/07/18 11/08/18 19:45 10:52 09:06 Sickle Cell Screen CSF Myelin Basic Protein CSF Lyme Disease DNA CSF Cryptococcus Ag Not detected Anti-Proteinase 3 Less than 1.0 Anti-Myeloperoxidase Less than 1.0 MTHFR Mutation Detect Prothrombin [id number] Mut 11/08/18 11/08/18 11/10/18 09:06 09:06 10:09 Sickle Cell Screen Negative CSF Myelin Basic Protein Less than 2.0 L CSF Lyme Disease DNA Not detected CSF Cryptococcus Ag Anti-Proteinase 3 Anti-Myeloperoxidase MTHFR Mutation Detect Prothrombin [id number] Mut Microbiology 11/06/18 19:50 Aerobic Blood Culture - Preliminary Blood - Peripheral No growth in 4 days Anaerobic Blood Culture - Preliminary No growth in 4 days 11/06/18 19:50 Aerobic Blood Culture - Preliminary Blood - Peripheral No growth in 4 days Anaerobic Blood Culture - Preliminary No growth in 4 days 11/08/18 09:06 Gram Stain - Final Lumbar Puncture CSF Culture - Preliminary No growth in 48 hours Review/Management - Review/Management Plan: imp mrv nl mult abn areas brain cta some irregularity and beading ? vasculitis potato chip cooker machine vs cardioembolic mri abn are not typical for infarcts have some edema esr and crp nl do LP and GAMA 11/08/18 echo neg labs ok so far' b12 shot possible vasculitis plan today is LP and gama stable neuro sr 11/09/18 sr gama neg LP neg labs so far neg plan is 60 pred this am and i will dw neurorads about [facility] vs [facility] for possible potato chip cooker machine vasculitis? will repeat mri 11/10/18 mri left occipital area a little larger no enhancement agram has some areas of definite vasoconstriciton proximal arteries and am having neurorad and a cva specialist from [facility] nahun review it pred 60 for now need defintive dx vasculitis vs angiitis vs vasospasm bp low check pyruvic acid clinically stable 11/11/18 sickle cell neg pyrunvate pend stable neuro tells me was having sign posey few weeks ago i think may be reversible vasoconstrictive syndrome but cannot r/o vasulitis entirely plan is dc on prednisone 60mg a day and tums and zantac overthe counter and also calan sr 120 a day and recheck scans in 3 weeks check mra cow to match up vs agram today b4 dc make sure bp not too low on calan he should beware of orthostatic hypotension will fu office
[2018-11-11] MEDS: Pantoprazole Sodium 20 MG DR Tablet PO SCH (08:18)
[2018-11-11] MEDS: predniSONE 20 MG Tablet PO SCH (08:18)
--- NOTE | 2018-11-11 08:20 | P.PN ---
Subjective Interval history: awake and alert no complains of headaches, slept well eating breakfast, no N/v "ready to go home" reviewed telemetry- episoses of tachycardia rate up to 130-140s- asymptomatic and some rated 40s- asymtpomatic Physical Exam Vital signs: Vital Signs 11/10/18 12:00 11/10/18 16:00 11/10/18 19:35 Temperature 97.8 F 98.5 F 98.8 F Pulse Rate 71 100 H 73 Respiratory Rate 17 17 20 Blood Pressure 115/59 L 138/60 97/54 L Pulse Oximetry 100 98 99 11/10/18 21:56 11/10/18 23:50 11/11/18 04:00 Temperature 97.3 F L 97.2 F L Pulse Rate 51 L 51 L Respiratory Rate 20 18 Blood Pressure 97/53 L 105/59 L Pulse Oximetry 99 97 99 Intake & Output 11/10/18 11/11/18 11/11/18 18:59 06:59 18:59 Intake Total 2960 / 2960 200 / 200 Balance 2960 / 2960 200 / 200 Weight 43.6 kg Intake: IV 1999 NS Inj 1,000 ML @ 100 mls/hr IV 1999 .CONT .Q10H [facility] Rx#:[id number] Oral 960 / 960 200 / 200 Other: # Voids 4 3 Date of Last Bowel Movement 11/10/18 11/10/18 # Bowel Movements 1 0 Narrative: awake alert anicteric'no nuchal rigidity lungs- cear' regular rhytnm HR- 74/min teleemtry reviewed- overnight episodes of tachycardia- sinus HR 120 and some readings of bradycardia- HR 40s Results - Labs CBC & Chem 7: 11/06/18 14:50 11/07/18 03:50 Laboratory Results - last 24 hr 11/06/18 11/07/18 11/08/18 19:45 10:52 09:06 Sickle Cell Screen CSF Myelin Basic Protein CSF Lyme Disease DNA CSF Cryptococcus Ag Not detected Anti-Proteinase 3 Less than 1.0 Anti-Myeloperoxidase Less than 1.0 MTHFR Mutation Detect Prothrombin [id number] Mut 11/08/18 11/08/18 11/10/18 09:06 09:06 10:09 Sickle Cell Screen Negative CSF Myelin Basic Protein Less than 2.0 L CSF Lyme Disease DNA Not detected CSF Cryptococcus Ag Anti-Proteinase 3 Anti-Myeloperoxidase MTHFR Mutation Detect Prothrombin [id number] Mut Microbiology 11/08/18 09:06 Lumbar Puncture Gram Stain - Final 11/08/18 09:06 Lumbar Puncture CSF Culture - Final No growth in 72 hours 11/06/18 19:50 Blood - Peripheral Aerobic Blood Culture - Preliminary No growth in 4 days 11/06/18 19:50 Blood - Peripheral Anaerobic Blood Culture - Preliminary No growth in 4 days 11/06/18 19:50 Blood - Peripheral Aerobic Blood Culture - Preliminary No growth in 4 days 11/06/18 19:50 Blood - Peripheral Anaerobic Blood Culture - Preliminary No growth in 4 days - Procedures 11/08- LP Assessment and Plan - Plan 23-year-old male right handed male with no significant past medical history presented to the ED with complaints of a headache intermitted for 3 weeks and right-sided numbness for the last 2 days. no recent URI symptoms, no slurring of speech, no SZ reported states HIV tested negative 2 years ago, no history of STDs Acute infarction - involving multiple areas on MRI presenting with -Headaches with transient right sided numbness- symptoms improved - no neuro deficits - neruo looks good need defintive dx vasculitis vs angiitis vs vasospasm- Dr. Batista send films to [facility] for review R/o Vasculitis -Cerebritis - S/P LP- 11/08- ff cultures- negative so far S/P RENETTA 11/08- no source of cardioembolic infarcts MRI reviewed and shows multiple areas of restriction diffusion capacity bilaterally one of which corresponds to an area of lucency on the patient's brain CT characteristic of acute infarction and possibly embolic episode vs Cerebritis Neck CTA unremarkable Head CTA unremarkable Head CT reviewed and shows an abnormal area of diminished attenuation right frontal lobe not present previously could potentially be an area of infarction - ESR, CRP normal - Holter monitor- unremarkable - 2D echo - unremarkable - -ASA daily- restarted today 11/09 -EEG - non specific encephalopathy -PT daily -repeat MRI 11/09- worsening but clinically looks good- ordere for MRA this am - started trail of Prendisone 60 mg today per Neurology ? Tachy/alvaro syndrome - reviewed telemetry- episodes of Tachcuyardia sinus rates up to 140s this am -some rates in the 40s asymtpoamtic telemetry reviewed- tachycrbrady - 11/06 holter was done- sinu bradycardia- no episodes of tachycardia on report -TSH normal -will ask cardiology to see patient again- may need extended monitoring- home with holter x [address] george for RENETTA - was started on Calan 120 11/10 Elevated CK on admissionresolved improved with fluids- continue - states he recently raced with his brother about a week ago - denies any muscle aches or joint pain DVT prophylaxis: SCDs Code Status: Full Discussed Condition With: patient and girlfriend FF up with PCP FF up with Dr Batista in 2-[address] scan as OP advise to take OTC Zantac bid
[2018-11-11] MEDS: Sod Chloride 0.9% Inj 1,000 ML IV.CONT SCH (08:22)
[2018-11-11] MEDS ORDERED: Sodium Chloride 0.9% 2 ML Flush BID IV.FLUSH SCH (09:00)
[2018-11-11 10:58] VITALS: RESP 16; O2SAT 100
--- NOTE | 2018-11-11 13:02 | MR ---
EXAM DATE: 11/11/2018 12:55 PM EST AGE/SEX: 23 years / Male INDICATIONS: . Arteritis. CLINICAL DATA: This is the patient's initial encounter. Patient reports that signs and symptoms have been present for 1 day and indicates a pain score of 0/10. MEDICAL/SURGICAL HISTORY: None. . COMPARISON: [facility], CTA HEAD W CONTRAST W 3D, 11/06/2018. . TECHNIQUE: 3D [id number] MRA was performed. Source images, multiplanar STS MIP, and 3D volum e MIP reconstructions were reviewed. FINDINGS: There are multiple areas of beaded narrowing involving bilateral PATT, bilateral MCA, and bilateral PC A worse involving the MCA branches. The appearance is fairly similar to the prior CT angiogram from considering differences in technique. CONCLUSION: 1. No significant change in the appearance of the beaded areas of narrowing involving multiple vesse ls worse bilateral MCA could be seen with vasculitis and/or spasm, however the appearance is nonspeci fic. Electronically signed by: Yani Hernandez MD Board Certified Radiologist 11/11/2018 1:01 PM EST
[2018-11-11 13:23] VITALS: BP 127/70; PULSE 87; TEMP 97.9
--- NOTE | 2018-11-11 13:55 | P.DS ---
Date of admission: 11/06/18 17:31 Primary care physician: No Primary Care Physician Anticipated date of discharge: 11/11/18 Brief History from admission: 23-year-old male with no medical history presented to the ED with complaints of a headache that has lasted 3 weeks and right-sided numbness for the last 2 days. Patient states he has had on and off 2/10 throbbing headaches in the frontal region that radiate to the occipital region, for 3 weeks, worse with light, with associated nausea and not relieved by Advil. He states that for the last 2 days he has been having numbness on his right side. He denies any associated shortness of breath, chest pain, fever or chills. He denies any family history of any clotting disorders. Upon examination patient only complains of a mild headache with some slight numbness to the right side, no weakness is noted. Patient update on day of discharge: afebrile no headcvhe, no neck apin neuro stable up and ambualting DS: Medications - Discharge Medications Prescriptions: multivitamin with folic acid [Thera] 1 tab PO DAILY #30 tab prednisone 60 mg PO DAILY 30 Days tab verapamil 120 mg PO DAILY #30 tab DS: Summary - Time Spent with Patient Total time spent providing and/or coordinating discharge services: - Quality: Stroke Last date observed well: 11/10/18 - Quality: VTE Deep Vein Thrombosis/Pulmonary Embolism Present on Admission: No Exam Vital signs: Vital Signs 11/10/18 16:00 11/10/18 19:35 11/10/18 21:56 Temperature 98.5 F 98.8 F Pulse Rate 100 H 73 Respiratory Rate 17 20 Blood Pressure 138/60 97/54 L Pulse Oximetry 98 99 99 11/10/18 23:50 11/11/18 04:00 11/11/18 08:40 Temperature 97.3 F L 97.2 F L 97.5 F L Pulse Rate 51 L 51 L 82 Respiratory Rate 20 18 16 Blood Pressure 97/53 L 105/59 L 122/68 Pulse Oximetry 97 99 100 11/11/18 09:00 11/11/18 11:50 Temperature 97.9 F Pulse Rate 74 87 Respiratory Rate 16 Blood Pressure 127/70 Pulse Oximetry 100 Intake & Output 11/10/18 11/11/18 11/11/18 18:59 06:59 18:59 Intake Total 2960 / 2960 200 / 200 1999 Output Total 200 / 200 Balance 2960 / 2960 200 / 200 1800 / 1800 Weight 43.6 kg Intake: IV 1999 NS Inj 1,000 ML @ 100 mls/hr IV 1999 1000 / 1000 .CONT .Q10H SATINDER Rx#:[id number] NS Inj 1,000 ML @ 70 mls/hr IV. 1000 / 1000 SIG .[id number] SATINDER Rx#:[id number] Oral 960 / 960 200 / 200 Output: Urine 200 / 200 Other: # Voids 4 3 Date of Last Bowel Movement 11/10/18 11/10/18 # Bowel Movements 1 0 Results Procedures completed during hospitalization: 11/08- LP Labs on day of discharge: Labs from last 24 hours 11/08/18 11/08/18 11/07/18 09:06 09:06 10:52 CSF Myelin Basic Protein Less than 2.0 L CSF Cryptococcus Ag Not detected Anti-Proteinase 3 Less than 1.0 Anti-Myeloperoxidase Less than 1.0 MTHFR Mutation Detect Prothrombin [id number] Mut 11/06/18 19:45 CSF Myelin Basic Protein CSF Cryptococcus Ag Anti-Proteinase 3 Anti-Myeloperoxidase MTHFR Mutation Detect Prothrombin [id number] Mut - Impressions ITS Impressions Chest X-Ray 11/06/18 14:51 CONCLUSION: No acute cardiopulmonary disease. Head CT 11/06/18 14:51 CONCLUSION: 1. Abnormal area of diminished attenuation right frontal lobe not present previously could potentially be an area of infarction, however underlying cerebritis or even abscess formation difficult to exclude. Report was called by [myself to Dr. James at 3:41 PM. ] Head CTA 11/06/18 14:56 CONCLUSION: 1. Unremarkable study. Neck CTA 11/06/18 14:56 CONCLUSION: 1. Unremarkable study. Head/Brain Mag Res Venography 11/06/18 18:49 CONCLUSION: Brain MRV within normal limits. Lumbar Puncture Fluoroscopy 11/08/18 08:26 CONCLUSION: 1. Uncomplicated fluoroscopically guided lumbar puncture. Cerebral Angiography 11/09/18 00:00 CONCLUSION: Mild multifocal vasospastic and vasculitic changes involving both anterior and posterior circulation proximal and parenchymal vessels. The appearance is less pronounced than on the recent prior CTA. This would therefore be more suggestive of primary cerebral angiitis or transient cerebral vasoconstriction syndrome than of chronic vasculitic changes from systemic disease entities. Head MRI 11/09/18 00:00 CONCLUSION: 1. The left posterior temporal occipital junction area of abnormal diffusion appears slightly worse since 11/06/2018 and the right frontal and bilateral parietal lobe areas are similar not significantly changed. Head MRA 11/11/18 00:00 CONCLUSION: 1. No significant change in the appearance of the beaded areas of narrowing involving multiple vessels worse bilateral MCA could be seen with vasculitis and /or spasm, however the appearance is nonspecific. Discharge Plan - Discharge Disposition Patient Disposition: 01 Discharge Home - Discharge Condition Condition: Stable - Discharge Order Discharge Orders: Discharge Order (Routine); Ordered 11/11/18 Ordered By: Jelena Rincon Cardiology Clear for Discharge (Routine); Ordered 11/11/18 Ordered By: Shashi Massey ED Use Only Admit Order (Routine); Ordered 11/06/18 Ordered By: Jerome James - Physicians Team Primary Care Provider: Primary Care Physici,No Attending Provider: Jelena Rincon Other Providers: Juan Batista MD ; Shashi Massey DO
--- NOTE | 2018-11-11 22:24 | P.PNCA ---
Subjective Interval history: Asked to see for heart rates of 50-130 Reviewed telemetry Mostly sinus rhythm/sinus bradycardia Occasional junctional rhythm in the 50s Occasional sinus tachycardia with rates 100-130 No significant arrhythmias noted Medications and Allergies Allergies Allergy/AdvReac Type Severity Reaction Status Date / Time shellfish derived Allergy Vomiting Verified 11/06/18 14:49 Physical Exam Vital signs: Vital Signs 11/10/18 23:50 11/11/18 04:00 11/11/18 08:40 Temperature 97.3 F L 97.2 F L 97.5 F L Pulse Rate 51 L 51 L 82 Respiratory Rate 20 18 16 Blood Pressure 97/53 L 105/59 L 122/68 Pulse Oximetry 97 99 100 11/11/18 09:00 11/11/18 11:50 Temperature 97.9 F Pulse Rate 74 87 Respiratory Rate 16 Blood Pressure 127/70 Pulse Oximetry 100 Intake & Output 11/11/18 11/11/18 11/12/18 06:59 18:59 06:59 Intake Total 200 / 200 2000 / 2000 Output Total 200 / 200 Balance 200 / 200 1800 / 1800 Weight 43.6 kg Intake: IV 2000 / 2000 NS Inj 1,000 ML @ 100 mls/hr IV 1000 / 1000 .CONT .Q10H SATINDER Rx#:[id number] NS Inj 1,000 ML @ 70 mls/hr IV. 1000 / 1000 SIG .[id number] SATINDER Rx#:[id number] Oral 200 / 200 Output: Urine 200 / 200 Other: # Voids 3 Date of Last Bowel Movement 11/10/18 # Bowel Movements 0 Narrative: GENERAL: NAD, AAOx3 SKIN: Warm and dry. HEAD: Atraumatic. Normocephalic. EYES: Pupils equal and round. No scleral icterus. No injection or drainage. ENT: No nasal bleeding or discharge. Mucous membranes pink and moist. NECK: Trachea midline. No JVD. CARDIOVASCULAR: Regular rate and rhythm. RESPIRATORY: No accessory muscle use. Clear to auscultation. Breath sounds equal bilaterally. GASTROINTESTINAL: Abdomen soft, non-tender, nondistended. Hepatic and splenic margins not palpable. MUSCULOSKELETAL: Extremities without clubbing, cyanosis, or edema. No obvious deformities. NEUROLOGICAL: Awake and alert. No obvious cranial nerve deficits. Motor grossly within normal limits. Five out of 5 muscle strength in the arms and legs. Normal speech. PSYCHIATRIC: Appropriate mood and affect; insight and judgment normal. Results 11/06/18 14:50 11/07/18 03:50 Intake and Output 11/11/18 11/11/18 11/11/18 06:59 14:59 22:59 Intake Total 200 / 200 1999 / 1999 Output Total 200 / 200 Balance 200 / 200 1800 / 1800 Intake: IV 1999 / 1999 NS Inj 1,000 ML @ 100 mls/hr IV 1000 / 1000 .CONT .Q10H SATINDER Rx#:[id number] NS Inj 1,000 ML @ 70 mls/hr IV. 1000 / 1000 SIG .[id number] SATINDER Rx#:[id number] Oral 200 / 200 Output: Urine 200 / 200 Other: # Voids 3 # Bowel Movements 0 Weight 43.6 kg - Imaging and Cardiology Imaging: Impressions Head MRA 11/11/18 00:00 CONCLUSION: 1. No significant change in the appearance of the beaded areas of narrowing involving multiple vessels worse bilateral MCA could be seen with vasculitis and /or spasm, however the appearance is nonspecific. Assessment and Plan - Assessment (1) Bradycardia Code(s): R00.1 - Bradycardia, unspecified Status: Acute (2) Acute CVA (cerebrovascular accident) Code(s): I63.9 - Cerebral infarction, unspecified Status: Acute - Plan 1) CVA RENETTA showing no source of cerebrovascular embolism No shunt noted Angiogram showing possible vasculitis/spastic disease 2) Bradycardia/Tachycardia Asymptomatic Not considered tachy/lavaro syndrome Mostly sinus rhythm, sinus arrhythmia and sinus tachycardia Occasional junctional with heart rates in the 50s No arrhythmias noted Consider outpatient Holter vs Event monitor 3) No further cardiovascular work up inpatient Will see PRN, call with questions
== END 2018-11-11 15:00 | disposition home or self-care (01) | DRG 65 ==
LOC: PHED 14:37 → PHEDA 17:31 → PH3 18:32 → N06 21:17
PROVIDERS: ADMIT Internal Medicine; ATTEND Internal Medicine
CPT/HCPCS: 36222; 36223; 36226; 62270; 70450; 70496; 70498; 70544; 70553; 71010; 71045; 76937; 77003; 80048; 80061; 80307; 81001; 81240; 81241; 81291; 82131; 82550; 82552; 82607; 82746; 82945; 82948; 82962; 83090; 83520; 83873; 83916; 83918; 83921; 84155; 84157; 84165; 84210; 84425; 84443; 84484; 85025; 85240; 85300; 85302; 85306; 85307; 85384; 85610; 85613; 85651; 85652; 85660; 85670; 85730; 86021; 86038; 86140; 86146; 86147; 86148; 86403; 86430; 86431; 86592; 86777; 86778; 86850; 86900; 86901; 87015; 87040; 87070; 87102; 87116; 87205; 87206; 87327; 87389; 87449; 87801; 88108; 89050; 89051; 90760; 90761; 92526; 92610; 93005; 93225; 93306; 93312; 93320; 93325; 95819; 96360; 96361; 97110; 97116; 97162; 97166; 99145; 99152; 99153; 99285; A4646; A9585; C1769; C1887; C1893; C1894; G0195; J2250; J2405; J3010; J3420; J7030; J7506; J7512; Q9949; Q9967